=== PATIENT | female | born 1975 | race Two or more races ===

== ENCOUNTER 2017-03-09 21:04 | Inpatient (IN) | payer MEDICAID, OTHER ==
[~2017-03-09] VITALS: Ht 157.5 cm; Wt 59.4 kg
[2017-03-09] MEDS: Albuterol ud Inhalation HHN SCH ×3 (10:00→23:50)
[~2017-03-09 21:04] MED LIST: OMEPRAZOLE20 M2 ORAL
[2017-03-09] MEDS ORDERED: Famotidine 20 MG/ 2ML VIAL IVP ONE (21:15)
[2017-03-09] MEDS ORDERED: Morphine Sulfate 4mg/ml Inj IVP ONE (21:15)
[2017-03-09 21:17] VITALS: BP 105/74
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
[2017-03-09 21:45] LABS: MEAN CORPUSCULAR HEMOGLOBIN 39.8 PG (27.0-31.0); MEAN CORPUSCULAR VOLUME 114 FL (80-99); MEAN PLATELET VOLUME 4.8 FL (6.5-10.1); PLATELET COUNT 375 K/UL (150-450); RED BLOOD COUNT 3.14 M/UL (4.20-5.40); RED CELL DISTRIBUTION WIDTH 13.7 % (11.6-14.8)
[2017-03-09 21:55] LABS: PROTHROMBIN TIME 10.6 SEC (9.30-11.50)
[2017-03-09 22:21] LABS: ALANINE AMINOTRANSFERASE 8 U/L (3-33); ALBUMIN/GLOBULIN RATIO 1.5 (1.0-2.7); ANION GAP 13 (5-15); ASPARTATE AMINO TRANSFERASE 22 U/L (5-40); CARBON DIOXIDE 25 mEQ/L (20-30); CHLORIDE 107 mEQ/L (98-107); CREATININE 0.7 mg/dL (0.5-0.9); GLOMERULAR FILTRATION RATE > 60 mL/min (>60); HEMOLYSIS 5; LIPASE 60 U/L (< 60); POTASSIUM 3.9 mEQ/L (3.4-4.9); SODIUM 145 mEQ/L (135-145); TOTAL PROTEIN 7.5 g/dL (6.6-8.7)
[2017-03-09 22:25] LABS: BASOPHILS % (MANUAL) 1 % (0-2); EOSINOPHILS % (MANUAL) 2 % (0-3); LYMPHOCYTES % (MANUAL) 53 % (20-45); NEUTROPHILS % (MANUAL) 39 % (45-75); TOTAL CELLS COUNTED 100
[2017-03-09 22:28] LABS: ANISOCYTOSIS 1+; BAND NEUTROPHILS % (MANUAL) 0 % (0-8); MACROCYTES 2+; PLATELET ESTIMATE ADEQUATE; PLATELET MORPHOLOGY NORMAL
[2017-03-09] MEDS ORDERED: HYDROmorphone 1mg/ml Carpuject IVP ONE (22:45)
[2017-03-09 22:47] LABS: ALCOHOL 407 mg/dL
[2017-03-09] MEDS ORDERED: Ipratropium 0.02% Inh Soln 2.5ml UD HHN ONE (23:15)
[2017-03-09 23:29] VITALS: BP 134/110
[2017-03-10] VITALS (8 sets, daily range): BP systolic 114–160; BP diastolic 69–94
[2017-03-10] MEDS ORDERED: Mylanta II UD 30ml ORAL ONE (00:45)
[2017-03-10] MEDS ORDERED: Lidocaine 2% Visc 15ml soln ORAL ONE (00:45)
[2017-03-10] MEDS ORDERED: Hydromorphone 0.5mg/0.5ml inj IVP ONE (00:45)
[2017-03-10 01:50] LABS: APPEARANCE,URINE CLEAR; KETONES,URINE NEGATIVE (NEGATIVE); LEUKOCYTE ESTERASE ,URINE 1+ (NEGATIVE); NITRITE,URINE NEGATIVE (NEGATIVE); PH,URINE 5 (4.5-8.0); PROTEIN,URINE NEGATIVE (NEGATIVE); UROBILINOGEN,URINE NORMAL MG/DL (0.0-1.0)
[2017-03-10 02:10] LABS: RBC,URINE 0-2 /HPF (0 - 2)
[2017-03-10 02:11] LABS: BACTERIA,URINE MODERATE /HPF; SQUAMOUS EPITHELIAL CELL,UR MODERATE /LPF (NONE/OCC)
[2017-03-10] MEDS ORDERED: cefTRIAXone 1 GM in NS 55 ML IVPB ONE (06:45)
--- NOTE | 2017-03-10 12:45 | Consultation ---
DATE OF CONSULTATION: 03/10/2017 GASTROENTEROLOGY CONSULTATION REPORT CHIEF COMPLAINT: I was asked to see this patient by Dr. Javon Crisostomo for evaluation of abdominal issues. HISTORY OF PRESENT ILLNESS: The patient is a 41-year-old woman, who was recently discharged from another hospital who comes in here for abdominal issues. The patient was recently admitted to [facility] for approximately six days. She apparently was diagnosed with alcoholic pancreatitis and was just kept on bowel rest and subsequently discharged once she was tolerating oral diet. The patient does drink extensively and she points to approximately a bottle of vodka measuring about a fifth of vodka daily. She has been drinking like this for about 20 years. The patient apparently was discharged home from another hospital and restarted drinking as soon as she was discharged. She came in here high blood alcohol level. She has been having some nausea and vomiting for the past few days, but vomiting was just food material and was no hematemesis or coffee-ground emesis. Also her stools are brown and normal. PAST MEDICAL HISTORY: Otherwise unremarkable. FAMILY HISTORY: Noncontributory. SOCIAL HISTORY: The patient drinks extensively as explained above. She also smoke cigarettes and uses marijuana. She is single, but she has three children. MEDICATIONS: As outpatient none. REVIEW OF SYSTEMS: Otherwise negative. PHYSICAL EXAMINATION: GENERAL: The patient is a well-developed, well-nourished, woman seen in her room with the nurse at bedside. HEENT: Normocephalic and atraumatic. Sclerae anicteric. Oropharynx clear. NECK: Supple. CHEST: Clear to auscultation. CARDIOVASCULAR: Reveals a regular rate. ABDOMEN: Soft with some mild epigastric abdominal discomfort without guarding or rebound. EXTREMITIES: Revealed no edema. LABORATORY DATA: Noted. ASSESSMENT: This patient presents with an extensive alcohol use and recent history of alcoholic pancreatitis now with recurrent nausea and vomiting as she promptly resumed alcohol consumption after discharge from recent attack of pancreatitis. The patient will have to be placed on a bowel rest with IV fluids and proton-pump inhibitors. Should her symptoms resolve and then no further workup will be necessary. However, should she has persistent problems then further evaluation with endoscopy may be indicated. In the meantime, the importance of alcohol cessation was strongly emphasized to the patient. The patient became tearful and clearly understood the indications of her drinking behavior. RECOMMENDATIONS: 1. IV fluids. 2. Proton-pump inhibitor and bowel rest. 3. Monitor symptoms. 4. Discontinue alcohol. 5. Further recommendations to follow. Thank you for asking me to participate in the care of this patient. Jose Vo M.D. DR: GOPI JOB#: [id number] CC: ROSELIA
--- NOTE | 2017-03-10 13:53 | Infectious Diseases Prog Note ---
Assessment/Plan Problems: (1) UTI (urinary tract infection) Assessment & Plan: will send urine culture and start ceftriaxon (2) AA (alcohol abuse) Assessment & Plan: recommend counseling and rehabilitation (3) Abdominal pain Assessment & Plan: rule out PUD VS gastritis , may need EGD , GI is following (4) Nausea & vomiting Assessment & Plan: continue supportive care , and nausea medicine Subjective Allergies: Coded Allergies: No Known Allergies (Unverified , 12/04/15) Objective Vital Signs Last 24 Hour Vital Signs Date Time Temp Pulse Resp B/P Pulse Ox O2 Delivery O2 Flow Rate FiO2 03/10/17 12:33 99.5 77 18 139/91 97 Room Air 03/10/17 09:07 98.4 86 18 128/80 94 Room Air 03/10/17 08:07 98.9 88 15 114/69 100 Room Air 2.0 03/10/17 08:06 98.9 88 15 114/69 100 Room Air 03/10/17 06:00 97.6 85 14 117/71 100 Room Air 2.0 03/10/17 03:30 97.9 100 22 160/84 100 Room Air 2.0 03/10/17 02:01 97.9 03/10/17 01:15 98.4 104 24 132/90 100 Nasal Cannula 2.0 03/09/17 23:35 89 20 100 Nasal Cannula 2.0 03/09/17 23:35 90 20 100 Room Air 03/09/17 23:29 98.2 87 16 134/110 98 Nasal Cannula 2.0 03/09/17 23:15 84 18 Room Air 03/09/17 23:15 84 18 97 Room Air 03/09/17 22:01 98.1 03/09/17 22:01 98.1 03/09/17 21:17 98.1 87 16 105/74 97 Room Air 03/09/17 21:05 98.1 87 16 105/74 97 Room Air Height (Feet): 5 Height (Inches): 2.00 Weight (Pounds): 120 Laboratory Tests Test 03/09/17 21:20 03/10/17 01:15 White Blood Count 6.0 K/UL (4.8-10.8) Red Blood Count 3.14 M/UL (4.20-5.40) L Hemoglobin 12.5 G/DL (12.0-16.0) Hematocrit 35.7 % (37.0-47.0) L Mean Corpuscular Volume 114 FL (80-99) H Mean Corpuscular Hemoglobin 39.8 PG (27.0-31.0) H Mean Corpuscular Hemoglobin Concent 35.0 G/DL (32.0-36.0) Red Cell Distribution Width 13.7 % (11.6-14.8) Platelet Count 375 K/UL (150-450) Mean Platelet Volume 4.8 FL (6.5-10.1) L Neutrophils (%) (Auto) % (45.0-75.0) Lymphocytes (%) (Auto) % (20.0-45.0) Monocytes (%) (Auto) % (1.0-10.0) Eosinophils (%) (Auto) % (0.0-3.0) Basophils (%) (Auto) % (0.0-2.0) Differential Total Cells Counted 100 Neutrophils % (Manual) 39 % (45-75) L Lymphocytes % (Manual) 53 % (20-45) H Monocytes % (Manual) 5 % (1-10) Eosinophils % (Manual) 2 % (0-3) Basophils % (Manual) 1 % (0-2) Band Neutrophils 0 % (0-8) Platelet Estimate Adequate Platelet Morphology Normal Anisocytosis 1+ Macrocytosis 2+ Prothrombin Time 10.6 SEC (9.30-11.50) Prothromb Time International Ratio 1.0 (0.9-1.1) Activated Partial Thromboplast Time 32 SEC (23-33) Sodium Level 145 mEQ/L (135-145) Potassium Level 3.9 mEQ/L (3.4-4.9) Chloride Level 107 mEQ/L (98-107) Carbon Dioxide Level 25 mEQ/L (20-30) Anion Gap 13 (5-15) Blood Urea Nitrogen 10 mg/dL (7-23) Creatinine 0.7 mg/dL (0.5-0.9) Estimat Glomerular Filtration Rate > 60 mL/min (>60) Glucose Level 97 mg/dL (74-106) Calcium Level 9.0 mg/dL (8.6-10.2) Total Bilirubin < 0.2 mg/dL (0.0-1.2) Aspartate Amino Transf (AST/SGOT) 22 U/L (5-40) Alanine Aminotransferase (ALT/SGPT) 8 U/L (3-33) Alkaline Phosphatase 91 U/L (35-104) Total Protein 7.5 g/dL (6.6-8.7) Albumin 4.6 g/dL (3.5-5.2) Globulin 2.9 g/dL Albumin/Globulin Ratio 1.5 (1.0-2.7) Lipase 60 U/L (< 60) Human Chorionic Gonadotropin, Quant < 1 mIU/mL Serum Alcohol 407 mg/dL Urine Color Pale yellow Urine Appearance Clear Urine pH 5 (4.5-8.0) Urine Specific [place] 1.015 (1.005-1.035) Urine Protein Negative (NEGATIVE) Urine Glucose (UA) Negative (NEGATIVE) Urine Ketones Negative (NEGATIVE) Urine Occult Blood Negative (NEGATIVE) Urine Nitrite Negative (NEGATIVE) Urine Bilirubin Negative (NEGATIVE) Urine Urobilinogen Normal MG/DL (0.0-1.0) Urine Leukocyte Esterase 1+ (NEGATIVE) H Urine RBC 0-2 /HPF (0 - 2) Urine WBC 5-10 /HPF (0 - 2) H Urine Squamous Epithelial Cells Moderate /LPF (NONE/OCC) H Urine Bacteria Moderate /HPF (NONE) H Current Medications Medications (Trade) Dose Ordered Sig/Henrry Route PRN Reason Start Time Stop Time Status Last Admin Dose Admin Acetaminophen (Tylenol) 650 mg Q4H PRN ORAL PAIN/TEMP >100.4 03/10/17 08:00 04/09/17 07:59 Ondansetron HCl (Zofran) 4 mg Q6HR PRN IVP Nausea & Vomiting 03/10/17 08:30 04/09/17 08:29 Pantoprazole 40 mg 40 mg ACBREAKFAST ORAL 03/10/17 09:00 04/09/17 08:59 03/10/17 10:45 Sodium Chloride (0.45% NS 1000ml) 1,000 ml @ 75 mls/hr [id number] IV 03/10/17 13:00 04/09/17 12:59 03/10/17 13:20 Markos Davis M.D. Mar 10, 2017 13:53
[2017-03-10] MEDS: HYDROmorphone 1mg/ml Carpuject IVP PRN ×2 (15:59→20:42)
[2017-03-10] MEDS: cefTRIAXone 1 GM in D5W 55 ML IVPB SCH (16:50)
--- NOTE | 2017-03-10 20:30 | Consultation ---
DATE OF CONSULTATION: INFECTIOUS DISEASE CONSULTATION REQUESTING PHYSICIAN: Javon Crisostomo M.D. REASON FOR CONSULTATION: Urine tract infection. HISTORY OF PRESENT ILLNESS: The patient is a 41-year-old female with history of alcohol abuse, drug abuse and smoker presented to [facility] for sudden onset of abdominal pain. The patient has been drinking alcohol and she was admitted recently at [facility] and was treated for acute pancreatitis and discharged on 02/26/2017. The patient also had induced on 03/06/2017. Her pain started last night. It was severe. She vomited the blood and she had black tarry stools. The patient was three months and she had a termination of on 03/06/2017. No discharge or dysuria. No hematuria. Denied any fever or chills. She had mild productive cough. The patient was admitted to the hospital for further evaluation. Urinalysis showed evidence of infection, so I was consulted by the primary provider for antibiotics treatment and further management. PAST MEDICAL HISTORY: Significant for alcohol abuse, , hypertension and pancreatitis. PAST SURGICAL HISTORY: She had on 03/06/2017. MEDICATIONS: She received ceftriaxone in the emergency room. For the rest of her medications, please refer to [facility]. ALLERGIES: No known drug allergy. SOCIAL HISTORY: The patient lives with parents. Drinks alcohol, use drugs, marijuana sometimes and smokes tobacco. FAMILY HISTORY: Not contributory. REVIEW OF SYSTEMS: Fourteen points of system reviewed were all negative apart from the one I mentioned above in my History and Physical. PHYSICAL EXAMINATION: GENERAL: The patient is a middle-aged female, lying in bed, complaining of stomach discomfort, awake, alert, no apparent distress. VITAL SIGNS: Temperature 99.5 degrees, pulse 77, respiration 18, blood pressure 139/91, and saturation 97% on room air. HEENT: Normocephalic and atraumatic. Pupils reactive to light. Moist oral mucosa. No exudate. NECK: Supple. No lymphadenopathy. CARDIOVASCULAR: Regular rate and rhythm. No murmur. LUNGS: Clear bilaterally. No wheezing or rhonchi. Normal breathing efforts. ABDOMEN: Soft. Tender in the epigastrium. No rebound. No organomegaly. No ascites. EXTREMITIES: No edema or cyanosis. SKIN: No rash. No hives. LABORATORY AND DIAGNOSTIC DATA: Labs showed white count of 6, hemoglobin of 12.5, and platelet count 375,000. BUN of 10 and creatinine of 0.7. AST of 22 and ALT of 8. Lipase of 60. Urinalysis showed WBC 5-10, moderate amount of bacteria and +1 leukocyte esterase. Images, none done so far. ASSESSMENT AND RECOMMENDATION: 1. Urinary tract infection. We will send urine culture and start ceftriaxone. 2. Alcohol abuse. Recommend counseling and rehabilitation. 3. Abdominal pain, rule out peptic ulcer disease versus gastritis, may need esophagogastroduodenoscopy and further imaging. Gastrointestinal is following. 4. Nausea and vomiting. Continue supportive care and nausea medicine. Thank you. Markos Davis M.D. DR: VELIA JOB#: [id number] CC:
--- NOTE | 2017-03-10 22:45 | History and Physical Report ---
DATE OF ADMISSION: 03/10/2017 HISTORY OF PRESENT ILLNESS: The patient came in because of abdominal pain. The patient was also admitted for nausea and vomiting. The patient was basically complaining of abdominal pain and vomiting due to alcohol abuse, was also admitted for possible UTI and possible GI bleed and to rule out DT. Also at this point, does not have any manifestation, sign or symptoms of DT. The patient's abdominal pain started couple of days ago and vomited x1. No hematemesis noted. No bleeding. No constipation. No shortness of breath. No edema. PAST MEDICAL HISTORY: GERD, history of pancreatitis, and history of alcohol abuse. PAST SURGICAL HISTORY: None. MEDICATIONS: Omeprazole. ALLERGIES: No known allergies. SOCIAL HISTORY: The patient smokes, has history of drug and alcohol abuse. FAMILY HISTORY: Noncontributory. REVIEW OF SYSTEMS: HEENT: Denies headaches. Respiratory: Denies shortness of breath. Denies cough. Cardiovascular: Denies chest pain or orthopnea. Gastrointestinal: Reports abdominal pain associated with one time vomiting. No hematemesis. No constipation. No rectal bleeding. Extremities: Denies pain. Central Nervous System: No change in vision or speech pattern. PHYSICAL EXAMINATION: VITAL SIGNS: Temperature 97.9 degrees, pulse is 100, and blood pressure was 160/85. HEENT: PERRLA. NECK: Supple. No lymphadenopathy. CHEST: Clear to auscultation. CARDIOVASCULAR: Regular rate and rhythm. No murmur or extra sounds. GASTROINTESTINAL: Epigastric tenderness, very mild. No rebound. No organomegaly. Positive bowel sounds. EXTREMITIES: No edema. Moves all four extremities. NEUROLOGIC: Sensation is intact to light touch. Reflexes equal on both sides. LABORATORY DATA: WBC of 6, hemoglobin 12.5, and platelets 375,000. Sodium 145, potassium 3.9, BUN of 10, creatinine of 0.7, and glucose of 97. Lipase of 60. ASSESSMENT AND PLAN: Abdominal pain and vomiting and history of drug and alcohol abuse. I have consulted Dr. Vo, Dr. Dempsey, Dr. Hernandez, Dr. Davis, and Dr. Nunes for pain control as well as rule out delirium tremens as well as for rule out any psychiatric, possible depression as well as for the possible treatment of urinary tract infection and possible gastrointestinal bleed. Ali Liliam Crisostomo DR: ANDREA JOB#: [id number] CC:
[2017-03-11] VITALS: BP 155/82
[2017-03-11] MEDS: HYDROmorphone 1mg/ml Carpuject IVP PRN ×6 (00:45→22:03)
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
[2017-03-11 04:00] VITALS: BP 159/91
[2017-03-11 08:36] VITALS: BP 160/95
--- NOTE | 2017-03-11 08:48 | Consultation ---
History of Present Illness General Date patient seen: Mar 11, 2017 Chief Complaint: Abdominal Pain Present Illness Allergies: Coded Allergies: No Known Allergies (Unverified , 12/04/15) Medication History Scheduled Omeprazole (Omeprazole), 20 MG ORAL DAILY Patient History Healthcare decision maker Resuscitation status Advanced Directive on File Physical Exam Last 24 Hour Vital Signs Date Time Temp Pulse Resp B/P Pulse Ox O2 Delivery O2 Flow Rate FiO2 03/11/17 08:36 98.2 74 18 160/95 100 Room Air 03/11/17 04:00 98.2 62 20 159/91 94 Room Air 03/11/17 00:00 97.2 68 20 155/82 95 Nasal Cannula 2.0 03/10/17 21:00 97.4 69 20 151/94 100 Room Air 03/10/17 16:47 98.2 81 18 146/92 98 Room Air 03/10/17 12:33 99.5 77 18 139/91 97 Room Air 03/10/17 09:07 98.4 86 18 128/80 94 Room Air Intake and Output 03/10/17 03/11/17 19:00 07:00 Intake Total 710 ml 975 ml Balance 710 ml 975 ml IV Total 710 ml 975 ml # Voids 3 Height (Feet): 5 Height (Inches): 2.00 Weight (Pounds): 120 Medications Current Medications Medications (Trade) Dose Ordered Sig/Henrry Route PRN Reason Start Time Stop Time Status Last Admin Dose Admin Acetaminophen (Tylenol) 650 mg Q4H PRN ORAL PAIN/TEMP >100.4 03/10/17 08:00 04/09/17 07:59 Ceftriaxone Sodium/Dextrose (Rocephin/D5W) 55 ml @ 110 mls/hr Q24H IVPB 03/10/17 16:00 03/17/17 15:59 03/10/17 16:50 Diazepam (Valium) 10 mg Q4H PRN ORAL anxiety/alcohol withdrawal 03/10/17 19:30 03/17/17 19:29 Fluoxetine HCl (PROzac) 20 mg DAILY ORAL 03/11/17 09:00 04/10/17 08:59 03/11/17 08:28 Hydromorphone HCl (Dilaudid) 1 mg Q4H PRN IVP For Pain 4-10 03/10/17 15:30 03/17/17 15:29 03/11/17 04:59 Mirtazapine (Remeron) 7.5 mg BEDTIME ORAL 03/10/17 21:00 04/09/17 20:59 03/10/17 20:43 Ondansetron HCl (Zofran) 4 mg Q6HR PRN IVP Nausea & Vomiting 03/10/17 08:30 04/09/17 08:29 Pantoprazole 40 mg 40 mg ACBREAKFAST ORAL 03/10/17 09:00 04/09/17 08:59 03/11/17 06:09 Sodium Chloride 1,000 ml @ 75 mls/hr [id number] IV 03/10/17 13:00 04/09/17 12:59 03/11/17 00:45 Assessment/Plan Assessment/Plan (1) Intractable abdominal pain (2) Alcohol abuse (3) Pancreatitis seen dictated KENNY BOWER Mar 11, 2017 08:48
[2017-03-11 12:01] VITALS: BP 144/87
--- NOTE | 2017-03-11 14:35 | Neurology Progress Note ---
Objective Physical Exam Last Vital Signs Date Time Temp Pulse Resp B/P Pulse Ox O2 Delivery O2 Flow Rate FiO2 03/11/17 12:01 97.7 70 18 144/87 100 Room Air 03/11/17 00:00 2.0 03/10/17 08:07 28 Impression/Recommendations Problems: (1) r/o sensory polyneuropathy (2) ETOH abuse Status: unchanged Recommendations #[id number] ROSENDA OBREGON Mar 11, 2017 14:35
[2017-03-11] MEDS: Thiamine 100mg tab ORAL SCH (15:05)
[2017-03-11] MEDS: cefTRIAXone 1 GM in D5W 55 ML IVPB SCH (15:31)
[2017-03-11] MEDS ORDERED: Tubing IV Secondary IV ONE (15:51)
[2017-03-11] MEDS ORDERED: 1/2 NS 1000ml IV ONE ×2 (15:51→16:53)
[2017-03-11 16:47] VITALS: BP 149/90
--- NOTE | 2017-03-11 16:52 | Infectious Diseases Prog Note ---
Assessment/Plan Problems: (1) UTI (urinary tract infection) Assessment & Plan: await urine culture and continue ceftriaxon (2) AA (alcohol abuse) Assessment & Plan: recommend counseling and rehabilitation (3) Abdominal pain Assessment & Plan: rule out PUD VS gastritis , may need EGD , GI is following (4) Nausea & vomiting Assessment & Plan: continue supportive care , and nausea medicine Subjective Constitutional: Reports: no symptoms HEENT: Reports: no symptoms Respiratory: Reports: no symptoms Breasts: Reports: no symptoms Cardiovascular: Reports: no symptoms Gastrointestinal/Abdominal: Reports: bloating, nausea, other - pain Genitourinary: Reports: no symptoms Neurologic: Reports: no symptoms Psychiatric: Reports: no symptoms Skin: Reports: no symptoms Endocrine: Reports: no symptoms Allergies: Coded Allergies: No Known Allergies (Unverified , 12/04/15) Objective Vital Signs Last 24 Hour Vital Signs Date Time Temp Pulse Resp B/P Pulse Ox O2 Delivery O2 Flow Rate FiO2 03/11/17 16:47 97.9 65 18 149/90 95 Room Air 03/11/17 12:01 97.7 70 18 144/87 100 Room Air 03/11/17 08:36 98.2 74 18 160/95 100 Room Air 03/11/17 04:00 98.2 62 20 159/91 94 Room Air 03/11/17 00:00 97.2 68 20 155/82 95 Nasal Cannula 2.0 03/10/17 21:00 97.4 69 20 151/94 100 Room Air Height (Feet): 5 Height (Inches): 2.00 Weight (Pounds): 120 General Appearance: WD/WN, no acute distress HEENT: normocephalic, atraumatic, anicteric, mucous membranes moist, PERRL Respiratory/Chest: chest wall non-tender, lungs clear, normal breath sounds, no respiratory distress, no accessory muscle use Cardiovascular: normal peripheral pulses, normal rate, regular rhythm, no gallop/murmur, no JVD Abdomen: normal bowel sounds, soft, non tender, no organomegaly, no mass, no scars, absent bowel sounds, distended, tender Extremities: no cyanosis, no clubbing Skin: no rash, no lesions Microbiology Date/Time Source Procedure Growth Status 03/10/17 01:15 Urine,Clean Catch Urine Culture - Preliminary NO GROWTH AFTER 24 HOURS Resulted Current Medications Medications (Trade) Dose Ordered Sig/Henrry Route PRN Reason Start Time Stop Time Status Last Admin Dose Admin Acetaminophen (Tylenol) 650 mg Q4H PRN ORAL PAIN/TEMP >100.4 03/10/17 08:00 04/09/17 07:59 Ceftriaxone Sodium/Dextrose (Rocephin/D5W) 55 ml @ 110 mls/hr Q24H IVPB 03/10/17 16:00 03/17/17 15:59 03/11/17 15:31 Diazepam (Valium) 10 mg Q4H PRN ORAL anxiety/alcohol withdrawal 03/10/17 19:30 03/17/17 19:29 Fluoxetine HCl (PROzac) 20 mg DAILY ORAL 03/11/17 09:00 04/10/17 08:59 03/11/17 08:28 Gabapentin (Neurontin) 100 mg THREE TIMES A DAY ORAL 03/11/17 15:30 04/10/17 15:29 03/11/17 15:05 Hydromorphone HCl (Dilaudid) 1 mg Q4H PRN IVP For Pain 4-10 03/10/17 15:30 03/17/17 15:29 03/11/17 13:09 Mirtazapine (Remeron) 7.5 mg BEDTIME ORAL 03/10/17 21:00 04/09/17 20:59 03/10/17 20:43 Ondansetron HCl (Zofran) 4 mg Q6HR PRN IVP Nausea & Vomiting 03/10/17 08:30 04/09/17 08:29 Pantoprazole 40 mg 40 mg ACBREAKFAST ORAL 03/10/17 09:00 04/09/17 08:59 03/11/17 06:09 Sodium Chloride 1,000 ml @ 75 mls/hr [id number] IV 03/10/17 13:00 04/09/17 12:59 03/11/17 15:10 Thiamine HCl (Vitamin B1) 100 mg DAILY ORAL 03/11/17 15:30 04/10/17 15:29 03/11/17 15:05 Markos Davis M.D. Mar 11, 2017 16:52
--- NOTE | 2017-03-11 18:01 | General Progress Note ---
Assessment/Plan Assessment/Plan Assessment - EtOH abuse - epigastric pain, presumed EtOH gastritis - Macrocytosis Recommendations - po diet - EGD in am - possible CT scan if pain persists Subjective Allergies: Coded Allergies: No Known Allergies (Unverified , 12/04/15) Subjective Hungry wants to eat still with epigastric pain no vomiting Objective Last 24 Hour Vital Signs Date Time Temp Pulse Resp B/P Pulse Ox O2 Delivery O2 Flow Rate FiO2 03/11/17 16:47 97.9 65 18 149/90 95 Room Air 03/11/17 12:01 97.7 70 18 144/87 100 Room Air 03/11/17 08:36 98.2 74 18 160/95 100 Room Air 03/11/17 04:00 98.2 62 20 159/91 94 Room Air 03/11/17 00:00 97.2 68 20 155/82 95 Nasal Cannula 2.0 03/10/17 21:00 97.4 69 20 151/94 100 Room Air Intake and Output 03/10/17 03/11/17 19:00 07:00 Intake Total 710 ml 975 ml Balance 710 ml 975 ml IV Total 710 ml 975 ml # Voids 3 Height (Feet): 5 Height (Inches): 2.00 Weight (Pounds): 120 Objective WDWn NCAT supple CTA RRR Soft ND, (+) TTP epigastric, less TTP when distracted no edema non focal CLIFF HALL Mar 11, 2017 18:01
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
[2017-03-11 21:00] VITALS: BP 158/83
--- NOTE | 2017-03-11 22:23 | General Progress Note ---
Assessment/Plan Problem List: (1) Gastritis ICD Codes: K29.70 - Gastritis, unspecified, without bleeding SNOMED: 6718546 (2) Alcohol abuse ICD Codes: F10.10 - Alcohol abuse, uncomplicated SNOMED: 18989770 (3) Abdominal pain ICD Codes: R10.9 - Unspecified abdominal pain SNOMED: 40798990 (4) Nausea & vomiting ICD Codes: R11.2 - Nausea with vomiting, unspecified SNOMED: 64540397 Status: progressing Assessment/Plan abdominal pain is improving afebrile vitals stable no vomit no pancreatitis etoh abuse Subjective ROS Limited/Unobtainable: Yes Constitutional: Reports: no symptoms Allergies: Coded Allergies: No Known Allergies (Unverified , 12/04/15) Objective Last 24 Hour Vital Signs Date Time Temp Pulse Resp B/P Pulse Ox O2 Delivery O2 Flow Rate FiO2 03/11/17 16:47 97.9 65 18 149/90 95 Room Air 03/11/17 12:01 97.7 70 18 144/87 100 Room Air 03/11/17 08:36 98.2 74 18 160/95 100 Room Air 03/11/17 04:00 98.2 62 20 159/91 94 Room Air 03/11/17 00:00 97.2 68 20 155/82 95 Nasal Cannula 2.0 Intake and Output 03/10/17 03/11/17 19:00 07:00 Intake Total 710 ml 975 ml Balance 710 ml 975 ml IV Total 710 ml 975 ml # Voids 3 Height (Feet): 5 Height (Inches): 2.00 Weight (Pounds): 120 Abdomen: tender Javon Crisostomo MD Mar 11, 2017 22:23
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
--- NOTE | 2017-03-11 22:46 | Consultation ---
DATE OF CONSULTATION: 03/11/2017 PAIN MANAGEMENT CONSULTATION CONSULTING PHYSICIAN: Jessica Nunes M.D. PHYSICIAN PHOTO OPTICS TECHNICIAN: Stanislaw Ybarra REFERRING PHYSICIAN: Javon Crisostomo M.D. CHIEF COMPLAINT: Abdominal pain. HISTORY OF PRESENT ILLNESS: This is a 41-year-old female, who is being seen on the medical/surgical floor of [facility] for initial comprehensive pain management consultation. The patient states that she has been having abdominal pain since Wednesday night. It is acute and constant, rating it at 9/10 at its worst, describing as sharp pain, increasing with eating, and decreasing with medications. The patient reports that she has been using lot of alcohol and is alcoholic and was found apparently to have alcoholic pancreatitis, now admitted with pancreatitis as well, seen by convertible power shovel operator. Due to the pain, we were consulted so that the patient would have adequate pain control while here in the hospital. PAST MEDICAL HISTORY: Alcoholic pancreatitis and GERD. PAST SURGICAL HISTORY: Denies. ALLERGIES: No known drug allergies. MEDICATIONS: Omeprazole. SOCIAL HISTORY: She is a smoker, tobacco and marijuana. History of drug and alcohol abuse. REVIEW OF SYSTEMS: Denies rash, fever, chills, sweating, dizziness, drowsiness, blurred vision, sore throat, or change in weight. No shortness of breath or chest pain. No nausea, vomiting, diarrhea, or blood in the stool or urine. No bowel or bladder incontinence. No dysuria. She is complaining of severe abdominal pain. PHYSICAL EXAMINATION: GENERAL: Alert, awake, and oriented x3. VITAL SIGNS: Blood pressure is 160/95, heart rate 75, oxygen saturation 100%, respiratory rate 18, and temperature 98.2 degrees Fahrenheit. Height is 5 feet and 2 inches HEENT: PERRLA. NECK: Range of motion is full in all directions. No tenderness to paracervical muscles. No adenopathy. LUNGS: Clear. HEART: Regular. ABDOMEN: Tenderness to palpation. BACK: Range of motion is decreased on flexion and extension with tenderness to paraspinal muscles. No tenderness to trapezius or rhomboid muscles. EXTREMITIES: Upper extremity range of motion is full in all directions. Motor is intact. No cyanosis. No clubbing. No edema. Sensory is intact. Reflexes are unobtainable. No adenopathy. Lower extremity range of motion is decreased due to the patient's medical condition. Motor is intact. No cyanosis. No clubbing. No edema. Sensory is intact. Reflexes are unobtainable. No adenopathy. ASSESSMENT AND PLAN: This is a 41-year-old female with intractable abdominal pain, alcohol abuse, and pancreatitis. The patient was started on Dilaudid 1 mg IV every four hours as needed for severe pain. The patient was discussed with Dr. Nunes and Dr. Nunes concurred. We will follow the patient. Thank you very much for the courtesy of this consultation. Jessica Nunes M.D. BLAYNE Ybarra DR: Pablo JOB#: [id number] CC: ROSELIA
[2017-03-12] VITALS (10 sets, daily range): BP systolic 140–163; BP diastolic 86–110
[2017-03-12] MEDS: HYDROmorphone 1mg/ml Carpuject IVP PRN ×5 (02:21→21:33)
--- NOTE | 2017-03-12 06:20 | Anethesia Preoperative Eval ---
Anesthesia Pre-op PMH/ROS General Date of Evaluation: Mar 12, 2017 Time of Evaluation: 06:20 Anesthesiologist: terrence ASA Score: ASA 3 Mallampati Score Class I : Soft palate, uvula, fauces, pillars visible Class II: Soft palate, uvula, fauces visible Class III: Soft palate, base of uvula visible Class IV: Only hard plate visible Mallampati Classification: Class II Surgeon: maximiliano Diagnosis: abdominal pain Surgical Procedure: egd w/ bx Anesthesia History: none Social History: current smoker Family History: no anesthesia problems Allergies: Coded Allergies: No Known Allergies (Unverified , 12/04/15) Medications: see eMAR Past Medical History Cardiovascular: Reports: HTN Pulmonary: Reports: other - broncopam Gastrointestinal/Genitourinary: Reports: other - lmp 03/06/2017/ Anesthesia Pre-op Phys. Exam Physician Exam Last Vital Signs Date Time Temp Pulse Resp B/P Pulse Ox O2 Delivery O2 Flow Rate FiO2 03/11/17 21:00 97.3 75 18 158/83 96 Room Air 03/11/17 00:00 2.0 03/10/17 08:07 28 Constitutional: NAD Neurologic: CN 2-12 intact Cardiovascular: RRR Respiratory: CTA Gastrointestinal: S/NT/ND Airway Exam Mallampati Score: Class II MO: full Neck: supple TMD: 2fb ROM: full Teeth: missing, broken Anesthesia Pre-op A/P Labs Labs Test 03/09/17 21:20 03/10/17 01:15 White Blood Count 6.0 K/UL (4.8-10.8) Red Blood Count 3.14 M/UL (4.20-5.40) Hemoglobin 12.5 G/DL (12.0-16.0) Hematocrit 35.7 % (37.0-47.0) Mean Corpuscular Volume 114 FL (80-99) Mean Corpuscular Hemoglobin 39.8 PG (27.0-31.0) Mean Corpuscular Hemoglobin Concent 35.0 G/DL (32.0-36.0) Red Cell Distribution Width 13.7 % (11.6-14.8) Platelet Count 375 K/UL (150-450) Mean Platelet Volume 4.8 FL (6.5-10.1) Neutrophils (%) (Auto) % (45.0-75.0) Lymphocytes (%) (Auto) % (20.0-45.0) Monocytes (%) (Auto) % (1.0-10.0) Eosinophils (%) (Auto) % (0.0-3.0) Basophils (%) (Auto) % (0.0-2.0) Differential Total Cells Counted 100 Neutrophils % (Manual) 39 % (45-75) Lymphocytes % (Manual) 53 % (20-45) Monocytes % (Manual) 5 % (1-10) Eosinophils % (Manual) 2 % (0-3) Basophils % (Manual) 1 % (0-2) Band Neutrophils 0 % (0-8) Platelet Estimate Adequate Platelet Morphology Normal Anisocytosis 1+ Macrocytosis 2+ Prothrombin Time 10.6 SEC (9.30-11.50) Prothromb Time International Ratio 1.0 (0.9-1.1) Activated Partial Thromboplast Time 32 SEC (23-33) Sodium Level 145 mEQ/L (135-145) Potassium Level 3.9 mEQ/L (3.4-4.9) Chloride Level 107 mEQ/L (98-107) Carbon Dioxide Level 25 mEQ/L (20-30) Anion Gap 13 (5-15) Blood Urea Nitrogen 10 mg/dL (7-23) Creatinine 0.7 mg/dL (0.5-0.9) Estimat Glomerular Filtration Rate > 60 mL/min (>60) Glucose Level 97 mg/dL (74-106) Calcium Level 9.0 mg/dL (8.6-10.2) Total Bilirubin < 0.2 mg/dL (0.0-1.2) Aspartate Amino Transf (AST/SGOT) 22 U/L (5-40) Alanine Aminotransferase (ALT/SGPT) 8 U/L (3-33) Alkaline Phosphatase 91 U/L (35-104) Total Protein 7.5 g/dL (6.6-8.7) Albumin 4.6 g/dL (3.5-5.2) Globulin 2.9 g/dL Albumin/Globulin Ratio 1.5 (1.0-2.7) Lipase 60 U/L (< 60) Human Chorionic Gonadotropin, Quant < 1 mIU/mL Serum Alcohol 407 mg/dL Urine Color Pale yellow Urine Appearance Clear Urine pH 5 (4.5-8.0) Urine Specific [place] 1.015 (1.005-1.035) Urine Protein Negative (NEGATIVE) Urine Glucose (UA) Negative (NEGATIVE) Urine Ketones Negative (NEGATIVE) Urine Occult Blood Negative (NEGATIVE) Urine Nitrite Negative (NEGATIVE) Urine Bilirubin Negative (NEGATIVE) Urine Urobilinogen Normal MG/DL (0.0-1.0) Urine Leukocyte Esterase 1+ (NEGATIVE) Urine RBC 0-2 /HPF (0 - 2) Urine WBC 5-10 /HPF (0 - 2) Urine Squamous Epithelial Cells Moderate /LPF (NONE/OCC) Urine Bacteria Moderate /HPF (NONE) Serum Test less than 1 Risk Assessment & Plan Assessment: asa3 Plan: mac Status Change Before Surgery: No Pre-Antibiotics Drug: TAE Mendez Mar 12, 2017 06:20
[2017-03-12] MEDS ORDERED: Hydromorphone 0.5mg/0.5ml inj IVP PRN ×2 (07:00)
[2017-03-12] MEDS ORDERED: DiphenhydrAMINE 50mg/ml Inj IVP PRN ×2 (07:00)
[2017-03-12] MEDS ORDERED: Midazolam 2mg/2ml Inj IVP PRN ×2 (07:00)
[2017-03-12] MEDS ORDERED: Atropine Inj 1mg/10ml Syr IV PRN ×2 (07:00)
--- NOTE | 2017-03-12 07:02 | Pre-Procedure Note/Attestation ---
Pre-Procedure Note/Attestation Complete Prior to Procedure Planned Procedure: not applicable Procedure Narrative: egd Indications for Procedure Pre-Operative Diagnosis: abd pain Attestation I attest that I discussed the nature of the procedure; its benefits; risks and complications; and alternatives (and the risks and benefits of such alternatives ), prior to the procedure, with the patient (or the patient's legal sales representative printing supplies). I attest that, if there was a reasonable possibility of needing a blood transfusion, the patient (or the patient's legal sales representative printing supplies) was given the [facility] standardized written summary, pursuant to the [place] Blood Safety Act ([place] Health and Safety Code # 1645, as amended). I attest that I re-evaluated the patient just prior to the surgery and that there has been no change in the patient's H&P, except as documented below: CLIFF HALL Mar 12, 2017 07:02
--- NOTE | 2017-03-12 07:10 | General Progress Note ---
Assessment/Plan Assessment/Plan Assessment - EtOH abuse - epigastric pain, presumed EtOH gastritis - Macrocytosis Recommendations - CT abd / pelvis Subjective Allergies: Coded Allergies: No Known Allergies (Unverified , 12/04/15) Subjective seen in GI lab tolerated po still with pain, but better EGD done this am --> normal Objective Last 24 Hour Vital Signs Date Time Temp Pulse Resp B/P Pulse Ox O2 Delivery O2 Flow Rate FiO2 03/11/17 21:00 97.3 75 18 158/83 96 Room Air 03/11/17 16:47 97.9 65 18 149/90 95 Room Air 03/11/17 12:01 97.7 70 18 144/87 100 Room Air 03/11/17 08:36 98.2 74 18 160/95 100 Room Air Intake and Output 03/11/17 03/12/17 19:00 07:00 Intake Total 880 ml 750 ml Balance 880 ml 750 ml IV Total 880 ml 750 ml # Voids 2 Height (Feet): 5 Height (Inches): 2.00 Weight (Pounds): 131 Objective WDWn NCAT supple CTA RRR Soft ND, Less TTP epigastric no edema non focal CLIFF HALL Mar 12, 2017 07:10
--- NOTE | 2017-03-12 07:11 | Endoscopy Procedure Note ---
Endoscopy Procedure Note Indication for Procedure: pain Procedures Performed: EGD Operative Findings/Diagnosis: normal Specimen: yes Pt Tolerated Procedure Well: Yes Estimated Blood Loss: none Anesthesiologist: Anthony morris Anesthesia: MAC Medication Given: see anesthesia record Implant(s) used?: No 50 yrs or older w/o bx or poly: Not Applicable 10yrs. F/U not recommended: Not Applicable If not recommended, why?: CLIFF HALL Mar 12, 2017 07:11
--- NOTE | 2017-03-12 07:12 | Brief Operative Note ---
Immediate Post Operative Note Operative Note Chief Complaint: pain Pre-op Diagnosis: abd pain Procedure: egd/bx Post-op Diagnosis: nl Post-op Diagnosis: same as pre-op Surgeon: maximiliano Anesthesiologist: garrick morris Anesthesia: MAC Specimen: yes Complications: none Condition: stable Estimated Blood Loss: none Drains: none Implant(s) used?: No CLIFF HALL Mar 12, 2017 07:12
--- NOTE | 2017-03-12 07:27 | Immediate Post-Op Evaluation ---
Immediate Post-Op Evalulation Immediate Post-Op Evalulation Procedure: egd with biopsy Date of Evaluation: Mar 12, 2017 Time of Evaluation: 07:27 IV Fluids: 0.9ns 150ml Blood Products: none Estimated Blood Loss: negligible Blood Pressure Systolic: 154 Blood Pressure Diastolic: 91 Pulse Rate: 61 Respiratory Rate: 18 O2 Sat by Pulse Oximetry: 100 Temperature (Fahrenheit): 98.1 Pain Score (1-10): 0 Nausea: No Vomiting: No Complications none Patient Status: awake, reacts, patent Hydration Status: adequate Drug: TAE Mendez Mar 12, 2017 07:27
--- NOTE | 2017-03-12 07:29 | 48 Hour Post Anesthesia Eval ---
Post Anesthesia Evaluation Procedure: egd with biopsy Date of Evaluation: Mar 12, 2017 Time of Evaluation: 07:29 Blood Pressure Systolic: 155 0: 91 Pulse Rate: 68 Respiratory Rate: 18 Temperature (Fahrenheit): 98.1 O2 Sat by Pulse Oximetry: 100 Airway: patent Nausea: No Vomiting: No Pain Intensity: 6 Cardiopulmonary Status: stable Mental Status/LOC: patient returned to baseline Post-Anesthesia Complications: none Follow-up care needed: N/A TAE CHINO Mar 12, 2017 07:29
[2017-03-12] MEDS ORDERED: Lidocaine 1% MPF 10mg/ml 5ml ONE (08:00)
[2017-03-12] MEDS ORDERED: Propofol 10mg/ml 20ml IV ONE (08:00)
--- NOTE | 2017-03-12 10:35 | General Progress Note ---
Assessment/Plan Assessment/Plan (1) Intractable abdominal pain (2) Alcohol abuse (3) Pancreatitis We continue Dilaudid as needed. D/w Dr. Nunes and he concurred. Subjective Date patient seen: Mar 12, 2017 Time patient seen: 09:00 - am Constitutional: Reports: no symptoms HEENT: Reports: no symptoms Cardiovascular: Reports: no symptoms Respiratory: Reports: no symptoms Gastrointestinal/Abdominal: Reports: abdominal pain Genitourinary: Reports: no symptoms Neurologic/Psychiatric: Reports: no symptoms Endocrine: Reports: no symptoms Hematologic/Lymphatic: Reports: no symptoms Allergies: Coded Allergies: No Known Allergies (Unverified , 12/04/15) Subjective Patient is sitting up in bed reports continues to have pain and tolerable on the Dilaudid rating it a 6/10 at this time. Objective Last 24 Hour Vital Signs Date Time Temp Pulse Resp B/P Pulse Ox O2 Delivery O2 Flow Rate FiO2 03/12/17 08:43 97.4 76 20 163/110 98 Room Air 03/12/17 07:52 98.1 70 13 146/96 100 Room Air 03/12/17 07:30 68 18 152/86 100 Room Air 03/12/17 07:29 68 18 100 03/12/17 07:27 61 18 100 03/12/17 07:20 16 154/91 99 Room Air 03/12/17 07:15 98.1 74 15 149/95 100 Room Air 03/11/17 21:00 97.3 75 18 158/83 96 Room Air 03/11/17 16:47 97.9 65 18 149/90 95 Room Air 03/11/17 12:01 97.7 70 18 144/87 100 Room Air Intake and Output 03/11/17 03/12/17 19:00 07:00 Intake Total 880 ml 750 ml Balance 880 ml 750 ml IV Total 880 ml 750 ml # Voids 2 Height (Feet): 5 Height (Inches): 2.00 Weight (Pounds): 131 General Appearance: no apparent distress, alert EENT: PERRL/EOMI, normal ENT inspection Neck: non-tender, normal alignment Cardiovascular: normal rate, regular rhythm Respiratory/Chest: lungs clear, normal breath sounds Abdomen: tender Extremities: non-tender Edema: no edema noted Arm (L), no edema noted Arm (R), no edema noted Leg (L), no edema noted Leg (R), no edema noted Pedal (L), no edema noted Pedal (R), no edema noted Generalized Neurologic: alert, oriented x 3 Skin: warm/dry KENNY BOWER Mar 12, 2017 10:35
--- NOTE | 2017-03-12 11:55 | Diagnostic Imaging Report ---
Indication: Abdominal pain Technique: Continuous helical transaxial imaging of the abdomen and pelvis was obtained from the lung bases to the pubic symphysis during intravenous contrast administration. Coronal 2-D reformats were also obtained. Study obtained in a Siemens sensation [address] Total Dose length Product (DLP): [address] Dose Index Volume (CTDIvol): 13 mGy Comparison: None Findings: The lung bases are essentially clear. Within the lateral segment of the left lobe of the liver adjacent to the falciform ligament there is a hyperenhancing, globular, or approximately 1.8 x 3.3 cm mass. This is probably an incidental vascular malformation. Suggest nonemergent workup on an outpatient basis with Doppler ultrasound. There is a small cyst in the right kidney. There is a tiny nonobstructive stone in the mid pole the right kidney. There is no hydronephrosis. The gallbladder, spleen and adrenal glands are unremarkable. At the head of the pancreas there is a 5 mm focus of calcification. The CBD does not appear dilated. Adjacent to the CBD and the main pancreatic duct there is a suggestion of small cystic foci measuring 5-6mm. The main pancreatic duct is not dilated. The appendix is seen and appears normal. There is a 3.5 cm right ovarian cyst demonstrated. There is a 2 cm hyperenhancing focus within the anterior uterine body consistent with a fibroid. The bladder is unremarkable. Impression: No acute intra-abdominal findings. Focus of calcification at the head of the pancreas, nonspecific. This is probably on the basis of old pancreatitis. Small cystic foci at the head of the pancreas may be related to chronic pancreatitis i.e. inflammatory pseudocysts or IPMNs. Tiny nonobstructive stone in the right kidney. Right renal cyst Normal appendix. Incidental suspected vascular malformation involving the liver measuring 3.3 x 1.8 cm. 3.5 cm right ovarian cyst. 2 cm uterine fibroid. The CT scanner at [facility] is accredited by the [employer] and the scans are performed using dose optimization techniques as appropriate to a performed exam including Automatic Exposure control.
[2017-03-12] MEDS: Thiamine 100mg tab ORAL SCH (12:45)
--- NOTE | 2017-03-12 15:18 | Infectious Diseases Prog Note ---
Assessment/Plan Problems: (1) UTI (urinary tract infection) Assessment & Plan: urine culture is negative , will stop ceftriaxon (2) AA (alcohol abuse) Assessment & Plan: recommend counseling and rehabilitation (3) Abdominal pain Assessment & Plan: S/P EGD which showed gastritis , CT abdomen showed calcification at the pancreatic head, GI is following (4) Nausea & vomiting Assessment & Plan: resolved, continue supportive care , and nausea medicine Subjective Constitutional: Reports: no symptoms HEENT: Reports: no symptoms Respiratory: Reports: no symptoms Breasts: Reports: no symptoms Cardiovascular: Reports: no symptoms Gastrointestinal/Abdominal: Reports: no symptoms Genitourinary: Reports: no symptoms Neurologic: Reports: no symptoms Psychiatric: Reports: no symptoms Skin: Reports: no symptoms Endocrine: Reports: no symptoms Hematologic: Reports: no symptoms Musculoskeletal: Reports: no symptoms Allergies: Coded Allergies: No Known Allergies (Unverified , 12/04/15) Objective Vital Signs Last 24 Hour Vital Signs Date Time Temp Pulse Resp B/P Pulse Ox O2 Delivery O2 Flow Rate FiO2 03/12/17 14:00 75 158/100 03/12/17 11:54 97.3 67 20 163/98 99 Room Air 03/12/17 11:52 97.4 76 20 163/110 98 Room Air 03/12/17 08:43 97.4 76 20 163/110 98 Room Air 03/12/17 07:52 98.1 70 13 146/96 100 Room Air 03/12/17 07:30 68 18 152/86 100 Room Air 03/12/17 07:29 68 18 100 03/12/17 07:27 61 18 100 03/12/17 07:20 16 154/91 99 Room Air 03/12/17 07:15 98.1 74 15 149/95 100 Room Air 03/11/17 21:00 97.3 75 18 158/83 96 Room Air 03/11/17 16:47 97.9 65 18 149/90 95 Room Air Height (Feet): 5 Height (Inches): 2.00 Weight (Pounds): 131 General Appearance: WD/WN, no acute distress HEENT: normocephalic, atraumatic, anicteric, mucous membranes moist Respiratory/Chest: chest wall non-tender, lungs clear, normal breath sounds, no respiratory distress, no accessory muscle use Cardiovascular: normal peripheral pulses, normal rate, regular rhythm, no gallop/murmur, no JVD Abdomen: normal bowel sounds, soft, non tender, no organomegaly, non distended , no mass, no scars Extremities: no cyanosis, no clubbing Skin: no rash, no lesions Neurologic/Psychiatric: alert, oriented x 3 Lymphatic: no neck adenopathy, no groin adenopathy Microbiology Date/Time Source Procedure Growth Status 03/10/17 01:15 Urine,Clean Catch Urine Culture - Final NO GROWTH AFTER 48 HOURS Complete 03/10/17 16:30 Rectum VRE Culture - Final NO VANCOMYCIN RESISTANT ENTEROCOCCUS ... Complete Current Medications Medications (Trade) Dose Ordered Sig/Henrry Route PRN Reason Start Time Stop Time Status Last Admin Dose Admin Acetaminophen (Tylenol) 650 mg Q4H PRN ORAL PAIN/TEMP >100.4 03/10/17 08:00 04/09/17 07:59 Diazepam (Valium) 10 mg Q4H PRN ORAL anxiety/alcohol withdrawal 03/10/17 19:30 03/17/17 19:29 Fluoxetine HCl (PROzac) 20 mg DAILY ORAL 03/11/17 09:00 04/10/17 08:59 03/12/17 12:45 Gabapentin (Neurontin) 100 mg THREE TIMES A DAY ORAL 03/11/17 15:30 04/10/17 15:29 03/12/17 12:45 Hydromorphone HCl (Dilaudid) 0.5 mg Q15M PRN IVP Severe Pain (Pain Scale 7-10) 03/12/17 07:00 Hydromorphone HCl (Dilaudid) 1 mg Q4H PRN IVP For Pain 4-10 03/10/17 15:30 03/17/17 15:29 03/12/17 12:50 Mirtazapine (Remeron) 7.5 mg BEDTIME ORAL 03/10/17 21:00 04/09/17 20:59 03/11/17 21:42 Ondansetron HCl (Zofran) 4 mg Q6HR PRN IVP Nausea & Vomiting 03/10/17 08:30 04/09/17 08:29 Pantoprazole 40 mg 40 mg ACBREAKFAST ORAL 03/10/17 09:00 04/09/17 08:59 03/11/17 06:09 Sodium Chloride (0.45% NS 1000ml) 1,000 ml @ 75 mls/hr [id number] IV 03/10/17 13:00 04/09/17 12:59 03/12/17 05:00 Thiamine HCl (Vitamin B1) 100 mg DAILY ORAL 03/11/17 15:30 04/10/17 15:29 03/12/17 12:45 Markos Davis M.D. Mar 12, 2017 15:18
--- NOTE | 2017-03-12 21:04 | General Progress Note ---
Assessment/Plan Problem List: (1) Gastritis ICD Codes: K29.70 - Gastritis, unspecified, without bleeding SNOMED: 7048797 Qualifiers: Qualified Codes: K29.21 - Alcoholic gastritis with bleeding (2) Alcohol abuse ICD Codes: F10.10 - Alcohol abuse, uncomplicated SNOMED: 23353458 (3) Abdominal pain ICD Codes: R10.9 - Unspecified abdominal pain SNOMED: 72925239 (4) Nausea & vomiting ICD Codes: R11.2 - Nausea with vomiting, unspecified SNOMED: 98626082 Status: progressing Assessment/Plan abdominal pain improving reveiwed chart and labs afebrile no wheezing no acute events Subjective ROS Limited/Unobtainable: Yes Allergies: Coded Allergies: No Known Allergies (Unverified , 12/04/15) Objective Last 24 Hour Vital Signs Date Time Temp Pulse Resp B/P Pulse Ox O2 Delivery O2 Flow Rate FiO2 03/12/17 20:00 97.9 75 18 140/100 100 Room Air 03/12/17 16:00 96.1 76 20 152/90 99 Room Air 03/12/17 14:00 75 158/100 03/12/17 11:54 97.3 67 20 163/98 99 Room Air 03/12/17 11:52 97.4 76 20 163/110 98 Room Air 03/12/17 08:43 97.4 76 20 163/110 98 Room Air 03/12/17 07:52 98.1 70 13 146/96 100 Room Air 03/12/17 07:30 68 18 152/86 100 Room Air 03/12/17 07:29 68 18 100 03/12/17 07:27 61 18 100 03/12/17 07:20 16 154/91 99 Room Air 03/12/17 07:15 98.1 74 15 149/95 100 Room Air Intake and Output 03/11/17 03/12/17 19:00 07:00 Intake Total 880 ml 750 ml Balance 880 ml 750 ml IV Total 880 ml 750 ml # Voids 2 Height (Feet): 5 Height (Inches): 2.00 Weight (Pounds): 131 Neck: supple Respiratory/Chest: lungs clear Abdomen: soft Javon Crisostomo MD Mar 12, 2017 21:04
[2017-03-13] VITALS (8 sets, daily range): BP systolic 137–166; BP diastolic 84–110
[2017-03-13] MEDS: HYDROmorphone 1mg/ml Carpuject IVP PRN ×6 (01:46→21:42)
--- NOTE | 2017-03-13 03:47 | Progress Note ---
SUBJECTIVE: The patient is stable at baseline. No behavior issues. Calm and cooperative. She is complaining of depression, depressed mood, anhedonia, hopelessness, and helplessness. The patient also has anxiety and she has been started on fluoxetine 20 mg as well as Remeron at night. The patient's withdrawal symptoms are managed. MENTAL STATUS EXAMINATION: The patient is alert and oriented x3. Mood is depressed. Affect is constricted, congruent with mood. Thought process is concrete. Thought content, no suicidal or homicidal ideations. PLAN: 1. The patient will be continued on fluoxetine 20 mg in the morning. 2. Remeron 7.5 mg at bedtime. 3. We will continue to follow and readjust the medication. Kamryn Hernandez M.D. DR: Tiffany JOB#: [id number] CC:
[2017-03-13] MEDS: Thiamine 100mg tab ORAL SCH (09:41)
[2017-03-13 10:17] LABS: MEAN CORPUSCULAR HEMOGLOBIN 38.3 PG (27.0-31.0); MEAN CORPUSCULAR VOLUME 113 FL (80-99); MEAN PLATELET VOLUME 5.2 FL (6.5-10.1); PLATELET COUNT 269 K/UL (150-450); RED BLOOD COUNT 2.85 M/UL (4.20-5.40); RED CELL DISTRIBUTION WIDTH 12.9 % (11.6-14.8); WHITE BLOOD COUNT 4.9 K/UL (4.8-10.8)
[2017-03-13 10:19] LABS: ALANINE AMINOTRANSFERASE 11 U/L (3-33); ALBUMIN/GLOBULIN RATIO 1.3 (1.0-2.7); ANION GAP 12 (5-15); ASPARTATE AMINO TRANSFERASE 31 U/L (5-40); CALCIUM 8.9 mg/dL (8.6-10.2); CARBON DIOXIDE 25 mEQ/L (20-30); CHLORIDE 103 mEQ/L (98-107); CREATININE 0.5 mg/dL (0.5-0.9); GLOMERULAR FILTRATION RATE > 60 mL/min (>60); HEMOLYSIS 3; MAGNESIUM 1.3 mg/dL (1.7-2.5); PHOSPHORUS 3.4 mg/dL (2.5-4.8); POTASSIUM 3.9 mEQ/L (3.4-4.9); SODIUM 140 mEQ/L (135-145); TOTAL PROTEIN 6.6 g/dL (6.6-8.7)
--- NOTE | 2017-03-13 10:31 | Consultation ---
Consult Note Consult Note asked to eval for HTN and treatment Assessment/Plan - EtOH abuse - epigastric pain, presumed EtOH gastritis - Macrocytosis - Anemia Plan: DC IV Decrease pain meds- DC ?? check Iron panel Norvasc for high BP MEL PAINTING Mar 13, 2017 10:31
[2017-03-13 11:00] LABS: BAND NEUTROPHILS % (MANUAL) 0 % (0-8); BASOPHILS % (MANUAL) 0 % (0-2); EOSINOPHILS % (MANUAL) 6 % (0-3); LYMPHOCYTES % (MANUAL) 27 % (20-45); MACROCYTES 1+; NEUTROPHILS % (MANUAL) 64 % (45-75); PLATELET ESTIMATE ADEQUATE; PLATELET MORPHOLOGY NORMAL; TOTAL CELLS COUNTED 100
--- NOTE | 2017-03-13 11:45 | General Progress Note ---
Assessment/Plan Assessment/Plan Assessment - EtOH abuse - epigastric pain, presumed EtOH gastritis - negative EGD - negative CT - negative labs - Macrocytosis Recommendations - push po - d/c planning - outpt f/u Subjective Allergies: Coded Allergies: No Known Allergies (Unverified , 12/04/15) Subjective Feel same tolerating PO some abd pain Objective Last 24 Hour Vital Signs Date Time Temp Pulse Resp B/P Pulse Ox O2 Delivery O2 Flow Rate FiO2 03/13/17 11:28 97.6 79 18 148/84 99 Room Air 03/13/17 08:11 97.5 76 19 140/89 98 Room Air 03/13/17 06:12 97.2 03/13/17 05:34 68 146/103 03/13/17 04:00 97.2 72 18 152/106 100 Room Air 03/13/17 01:00 71 137/101 98 Room Air 03/13/17 00:17 166/102 03/13/17 00:00 97.2 72 18 152/106 Room Air 03/13/17 00:00 97.5 60 20 166/102 Room Air 03/12/17 20:00 97.9 75 18 140/100 100 Room Air 03/12/17 16:00 96.1 76 20 152/90 99 Room Air 03/12/17 14:00 75 158/100 03/12/17 11:54 97.3 67 20 163/98 99 Room Air 03/12/17 11:52 97.4 76 20 163/110 98 Room Air Intake and Output 03/12/17 03/13/17 19:00 07:00 Intake Total 1460 ml 1065 ml Output Total 0 ml Balance 1460 ml 1065 ml Intake Oral 660 ml 240 ml IV Total 800 ml 825 ml Output Estimated Blood Loss 0 ml # Voids 3 5 # Bowel Movements 1 Laboratory Tests 03/13/17 09:30: White Blood Count 4.9, Red Blood Count 2.85L, Hemoglobin 10.9L, Hematocrit 32.2L , Mean Corpuscular Volume 113H, Mean Corpuscular Hemoglobin 38.3H, Mean Corpuscular Hemoglobin Concent 34.0, Red Cell Distribution Width 12.9, Platelet Count 269, Mean Platelet Volume 5.2L, Neutrophils (%) (Auto) , Lymphocytes (%) ( Auto) , Monocytes (%) (Auto) , Eosinophils (%) (Auto) , Basophils (%) (Auto) , Differential Total Cells Counted 100, Neutrophils % (Manual) 64, Lymphocytes % ( Manual) 27, Monocytes % (Manual) 3, Eosinophils % (Manual) 6H, Basophils % ( Manual) 0, Band Neutrophils 0, Platelet Estimate Adequate, Platelet Morphology Normal, Macrocytosis 1+, Sodium Level 140, Potassium Level 3.9, Chloride Level 103, Carbon Dioxide Level 25, Anion Gap 12, Blood Urea Nitrogen 7, Creatinine 0.5, Estimat Glomerular Filtration Rate > 60, Glucose Level 110H, Calcium Level 8.9, Phosphorus Level 3.4, Magnesium Level 1.3L, Total Bilirubin 0.4, Aspartate Amino Transf (AST/SGOT) 31, Alanine Aminotransferase (ALT/SGPT) 11, Alkaline Phosphatase 105H, Total Protein 6.6, Albumin 3.8, Globulin 2.8, Albumin/ Globulin Ratio 1.3 Height (Feet): 5 Height (Inches): 2.00 Weight (Pounds): 131 Objective WDWn NCAT supple CTA RRR Soft ND, Less TTP epigastric no edema non focal CLIFF HALL Mar 13, 2017 11:45
--- NOTE | 2017-03-13 12:39 | General Progress Note ---
Assessment/Plan Problem List: (1) Gastritis ICD Codes: K29.70 - Gastritis, unspecified, without bleeding SNOMED: 7746065 Qualifiers: Qualified Codes: K29.21 - Alcoholic gastritis with bleeding (2) Alcohol abuse ICD Codes: F10.10 - Alcohol abuse, uncomplicated SNOMED: 30516413 (3) Abdominal pain ICD Codes: R10.9 - Unspecified abdominal pain SNOMED: 50518081 (4) Nausea & vomiting ICD Codes: R11.2 - Nausea with vomiting, unspecified SNOMED: 69113891 Status: progressing Assessment/Plan abdominal pain improving no v/d afebrile labs ordered clinically improving Subjective ROS Limited/Unobtainable: Yes Constitutional: Reports: no symptoms Allergies: Coded Allergies: No Known Allergies (Unverified , 12/04/15) Objective Last 24 Hour Vital Signs Date Time Temp Pulse Resp B/P Pulse Ox O2 Delivery O2 Flow Rate FiO2 03/13/17 12:15 79 148/84 03/13/17 11:28 97.6 79 18 148/84 99 Room Air 03/13/17 08:11 97.5 76 19 140/89 98 Room Air 03/13/17 06:12 97.2 03/13/17 05:34 68 146/103 03/13/17 04:00 97.2 72 18 152/106 100 Room Air 03/13/17 01:00 71 137/101 98 Room Air 03/13/17 00:17 166/102 03/13/17 00:00 97.2 72 18 152/106 Room Air 03/13/17 00:00 97.5 60 20 166/102 Room Air 03/12/17 20:00 97.9 75 18 140/100 100 Room Air 03/12/17 16:00 96.1 76 20 152/90 99 Room Air 03/12/17 14:00 75 158/100 Intake and Output 03/12/17 03/13/17 19:00 07:00 Intake Total 1460 ml 1065 ml Output Total 0 ml Balance 1460 ml 1065 ml Intake Oral 660 ml 240 ml IV Total 800 ml 825 ml Output Estimated Blood Loss 0 ml # Voids 3 5 # Bowel Movements 1 Laboratory Tests 03/13/17 09:30: White Blood Count 4.9, Red Blood Count 2.85L, Hemoglobin 10.9L, Hematocrit 32.2L , Mean Corpuscular Volume 113H, Mean Corpuscular Hemoglobin 38.3H, Mean Corpuscular Hemoglobin Concent 34.0, Red Cell Distribution Width 12.9, Platelet Count 269, Mean Platelet Volume 5.2L, Neutrophils (%) (Auto) , Lymphocytes (%) ( Auto) , Monocytes (%) (Auto) , Eosinophils (%) (Auto) , Basophils (%) (Auto) , Differential Total Cells Counted 100, Neutrophils % (Manual) 64, Lymphocytes % ( Manual) 27, Monocytes % (Manual) 3, Eosinophils % (Manual) 6H, Basophils % ( Manual) 0, Band Neutrophils 0, Platelet Estimate Adequate, Platelet Morphology Normal, Macrocytosis 1+, Sodium Level 140, Potassium Level 3.9, Chloride Level 103, Carbon Dioxide Level 25, Anion Gap 12, Blood Urea Nitrogen 7, Creatinine 0.5, Estimat Glomerular Filtration Rate > 60, Glucose Level 110H, Calcium Level 8.9, Phosphorus Level 3.4, Magnesium Level 1.3L, Total Bilirubin 0.4, Aspartate Amino Transf (AST/SGOT) 31, Alanine Aminotransferase (ALT/SGPT) 11, Alkaline Phosphatase 105H, Total Protein 6.6, Albumin 3.8, Globulin 2.8, Albumin/ Globulin Ratio 1.3 Height (Feet): 5 Height (Inches): 2.00 Weight (Pounds): 131 Neck: supple Cardiovascular: normal rate Respiratory/Chest: lungs clear Abdomen: soft Javon Crisostomo MD Mar 13, 2017 12:39
--- NOTE | 2017-03-13 15:40 | Infectious Diseases Prog Note ---
Assessment/Plan Problems: (1) UTI (urinary tract infection) Assessment & Plan: urine culture is negative , off ceftriaxon (2) AA (alcohol abuse) Assessment & Plan: recommend counseling and rehabilitation (3) Abdominal pain Assessment & Plan: S/P EGD which showed gastritis , CT abdomen showed calcification at the pancreatic head, GI is following (4) Nausea & vomiting Assessment & Plan: resolved, continue supportive care , and nausea medicine Subjective Constitutional: Reports: no symptoms HEENT: Reports: no symptoms Respiratory: Reports: no symptoms Breasts: Reports: no symptoms Cardiovascular: Reports: no symptoms Gastrointestinal/Abdominal: Reports: no symptoms Genitourinary: Reports: no symptoms Neurologic: Reports: no symptoms Psychiatric: Reports: no symptoms Skin: Reports: no symptoms Endocrine: Reports: no symptoms Hematologic: Reports: no symptoms Musculoskeletal: Reports: no symptoms Allergies: Coded Allergies: No Known Allergies (Unverified , 12/04/15) Objective Vital Signs Last 24 Hour Vital Signs Date Time Temp Pulse Resp B/P Pulse Ox O2 Delivery O2 Flow Rate FiO2 03/13/17 12:15 79 148/84 03/13/17 11:28 97.6 79 18 148/84 99 Room Air 03/13/17 08:11 97.5 76 19 140/89 98 Room Air 03/13/17 06:12 97.2 03/13/17 05:34 68 146/103 03/13/17 04:00 97.2 72 18 152/106 100 Room Air 03/13/17 01:00 71 137/101 98 Room Air 03/13/17 00:17 166/102 03/13/17 00:00 97.2 72 18 152/106 Room Air 03/13/17 00:00 97.5 60 20 166/102 Room Air 03/12/17 20:00 97.9 75 18 140/100 100 Room Air 03/12/17 16:00 96.1 76 20 152/90 99 Room Air Height (Feet): 5 Height (Inches): 2.00 Weight (Pounds): 131 General Appearance: WD/WN, no acute distress HEENT: normocephalic, atraumatic, anicteric, mucous membranes moist Respiratory/Chest: chest wall non-tender, lungs clear, normal breath sounds, no respiratory distress, no accessory muscle use Cardiovascular: normal peripheral pulses, normal rate, regular rhythm, no gallop/murmur, no JVD Abdomen: normal bowel sounds, soft, non tender, no organomegaly, non distended , no mass Extremities: no cyanosis, no clubbing Skin: no rash, no lesions Microbiology Date/Time Source Procedure Growth Status 03/10/17 16:30 Nasal Nares MRSA Culture - Final NO METHICILLIN RESISTANT STAPH AUREUS... Complete 03/10/17 16:30 Rectum VRE Culture - Final NO VANCOMYCIN RESISTANT ENTEROCOCCUS ... Complete Laboratory Tests Test 03/13/17 09:30 White Blood Count 4.9 K/UL (4.8-10.8) Red Blood Count 2.85 M/UL (4.20-5.40) L Hemoglobin 10.9 G/DL (12.0-16.0) L Hematocrit 32.2 % (37.0-47.0) L Mean Corpuscular Volume 113 FL (80-99) H Mean Corpuscular Hemoglobin 38.3 PG (27.0-31.0) H Mean Corpuscular Hemoglobin Concent 34.0 G/DL (32.0-36.0) Red Cell Distribution Width 12.9 % (11.6-14.8) Platelet Count 269 K/UL (150-450) Mean Platelet Volume 5.2 FL (6.5-10.1) L Neutrophils (%) (Auto) % (45.0-75.0) Lymphocytes (%) (Auto) % (20.0-45.0) Monocytes (%) (Auto) % (1.0-10.0) Eosinophils (%) (Auto) % (0.0-3.0) Basophils (%) (Auto) % (0.0-2.0) Differential Total Cells Counted 100 Neutrophils % (Manual) 64 % (45-75) Lymphocytes % (Manual) 27 % (20-45) Monocytes % (Manual) 3 % (1-10) Eosinophils % (Manual) 6 % (0-3) H Basophils % (Manual) 0 % (0-2) Band Neutrophils 0 % (0-8) Platelet Estimate Adequate Platelet Morphology Normal Macrocytosis 1+ Sodium Level 140 mEQ/L (135-145) Potassium Level 3.9 mEQ/L (3.4-4.9) Chloride Level 103 mEQ/L (98-107) Carbon Dioxide Level 25 mEQ/L (20-30) Anion Gap 12 (5-15) Blood Urea Nitrogen 7 mg/dL (7-23) Creatinine 0.5 mg/dL (0.5-0.9) Estimat Glomerular Filtration Rate > 60 mL/min (>60) Glucose Level 110 mg/dL (74-106) H Calcium Level 8.9 mg/dL (8.6-10.2) Phosphorus Level 3.4 mg/dL (2.5-4.8) Magnesium Level 1.3 mg/dL (1.7-2.5) L Total Bilirubin 0.4 mg/dL (0.0-1.2) Aspartate Amino Transf (AST/SGOT) 31 U/L (5-40) Alanine Aminotransferase (ALT/SGPT) 11 U/L (3-33) Alkaline Phosphatase 105 U/L (35-104) H Total Protein 6.6 g/dL (6.6-8.7) Albumin 3.8 g/dL (3.5-5.2) Globulin 2.8 g/dL Albumin/Globulin Ratio 1.3 (1.0-2.7) Current Medications Medications (Trade) Dose Ordered Sig/Henrry Route PRN Reason Start Time Stop Time Status Last Admin Dose Admin Acetaminophen (Tylenol) 650 mg Q4H PRN ORAL PAIN/TEMP >100.4 03/10/17 08:00 04/09/17 07:59 03/13/17 08:04 Amlodipine Besylate (Norvasc) 5 mg DAILY ORAL 03/13/17 11:00 04/12/17 10:59 03/13/17 12:15 Clonidine HCl (Catapres) 0.1 mg Q4H PRN ORAL for SBP >160 03/12/17 16:00 04/11/17 15:59 03/13/17 00:17 Diazepam (Valium) 10 mg Q4H PRN ORAL anxiety/alcohol withdrawal 03/10/17 19:30 03/17/17 19:29 Fluoxetine HCl (PROzac) 20 mg DAILY ORAL 03/11/17 09:00 04/10/17 08:59 03/13/17 09:41 Gabapentin (Neurontin) 100 mg THREE TIMES A DAY ORAL 03/11/17 15:30 04/10/17 15:29 03/13/17 12:14 Hydromorphone HCl (Dilaudid) 0.5 mg Q15M PRN IVP Severe Pain (Pain Scale 7-10) 03/12/17 07:00 Hydromorphone HCl (Dilaudid) 1 mg Q4H PRN IVP For Pain 4-10 03/10/17 15:30 03/17/17 15:29 03/13/17 13:40 Mirtazapine (Remeron) 7.5 mg BEDTIME ORAL 03/10/17 21:00 04/09/17 20:59 03/12/17 21:05 Ondansetron HCl (Zofran) 4 mg Q6HR PRN IVP Nausea & Vomiting 03/10/17 08:30 04/09/17 08:29 Pantoprazole (Protonix) 40 mg ACBREAKFAST ORAL 03/10/17 09:00 04/09/17 08:59 03/13/17 06:17 Thiamine HCl (Vitamin B1) 100 mg DAILY ORAL 03/11/17 15:30 04/10/17 15:29 03/13/17 09:41 Markos Davis M.D. Mar 13, 2017 15:40
[2017-03-13] MEDS ORDERED: 1/2 NS 1000ml IV ONE (16:54)
[2017-03-14] VITALS: BP 149/99
[2017-03-14] MEDS: HYDROmorphone 1mg/ml Carpuject IVP PRN ×6 (01:44→22:11)
[2017-03-14 04:00] VITALS: BP 138/97
[2017-03-14] MEDS: Thiamine 100mg tab ORAL SCH (08:20)
[2017-03-14 08:39] VITALS: BP 179/106
--- NOTE | 2017-03-14 09:15 | General Progress Note ---
Assessment/Plan Problem List: (1) Gastritis ICD Codes: K29.70 - Gastritis, unspecified, without bleeding SNOMED: 5220331 Qualifiers: Qualified Codes: K29.21 - Alcoholic gastritis with bleeding (2) Alcohol abuse ICD Codes: F10.10 - Alcohol abuse, uncomplicated SNOMED: 12271089 (3) Abdominal pain ICD Codes: R10.9 - Unspecified abdominal pain SNOMED: 41332049 (4) Nausea & vomiting ICD Codes: R11.2 - Nausea with vomiting, unspecified SNOMED: 89504948 Status: progressing Assessment/Plan abdominal pain improving no v/d afebrile dc in am reviewed chart and labs Subjective ROS Limited/Unobtainable: Yes Constitutional: Reports: no symptoms Allergies: Coded Allergies: No Known Allergies (Unverified , 12/04/15) Objective Last 24 Hour Vital Signs Date Time Temp Pulse Resp B/P Pulse Ox O2 Delivery O2 Flow Rate FiO2 03/14/17 08:39 96.6 78 19 179/106 99 Room Air 03/14/17 08:23 179/98 03/14/17 08:21 75 179/98 03/14/17 04:00 97.6 72 18 138/97 99 Room Air 03/14/17 00:00 97.8 73 17 149/99 99 Room Air 03/13/17 20:00 97.7 74 17 139/110 100 Room Air 03/13/17 15:58 97.5 71 18 149/98 96 Room Air 03/13/17 12:15 79 148/84 03/13/17 11:28 97.6 79 18 148/84 99 Room Air Intake and Output 03/13/17 03/14/17 19:00 07:00 Intake Total 800 ml 480 ml Balance 800 ml 480 ml Intake Oral 800 ml 480 ml # Voids 4 2 Laboratory Tests 03/13/17 09:30: White Blood Count 4.9, Red Blood Count 2.85L, Hemoglobin 10.9L, Hematocrit 32.2L , Mean Corpuscular Volume 113H, Mean Corpuscular Hemoglobin 38.3H, Mean Corpuscular Hemoglobin Concent 34.0, Red Cell Distribution Width 12.9, Platelet Count 269, Mean Platelet Volume 5.2L, Neutrophils (%) (Auto) , Lymphocytes (%) ( Auto) , Monocytes (%) (Auto) , Eosinophils (%) (Auto) , Basophils (%) (Auto) , Differential Total Cells Counted 100, Neutrophils % (Manual) 64, Lymphocytes % ( Manual) 27, Monocytes % (Manual) 3, Eosinophils % (Manual) 6H, Basophils % ( Manual) 0, Band Neutrophils 0, Platelet Estimate Adequate, Platelet Morphology Normal, Macrocytosis 1+, Sodium Level 140, Potassium Level 3.9, Chloride Level 103, Carbon Dioxide Level 25, Anion Gap 12, Blood Urea Nitrogen 7, Creatinine 0.5, Estimat Glomerular Filtration Rate > 60, Glucose Level 110H, Calcium Level 8.9, Phosphorus Level 3.4, Magnesium Level 1.3L, Total Bilirubin 0.4, Aspartate Amino Transf (AST/SGOT) 31, Alanine Aminotransferase (ALT/SGPT) 11, Alkaline Phosphatase 105H, Total Protein 6.6, Albumin 3.8, Globulin 2.8, Albumin/ Globulin Ratio 1.3 Height (Feet): 5 Height (Inches): 2.00 Weight (Pounds): 131 Cardiovascular: normal rate Respiratory/Chest: lungs clear Abdomen: non tender, soft Javon Crisostomo MD Mar 14, 2017 09:15
[2017-03-14] MEDS ORDERED: Metoprolol 25mg tab ORAL ONE (10:30)
--- NOTE | 2017-03-14 11:05 | General Progress Note ---
Assessment/Plan Status: stable Status Narrative BP fluctuates Assessment/Plan - EtOH abuse - epigastric pain, presumed EtOH gastritis - Macrocytosis - Anemia - HTN Plan: DC IV ?? Decrease pain meds- DC ?? Norvasc for high BP, will add lopressor Subjective ROS Limited/Unobtainable: No Constitutional: Reports: malaise Gastrointestinal/Abdominal: Reports: abdominal pain Allergies: Coded Allergies: No Known Allergies (Unverified , 12/04/15) Objective Last 24 Hour Vital Signs Date Time Temp Pulse Resp B/P Pulse Ox O2 Delivery O2 Flow Rate FiO2 03/14/17 08:39 96.6 78 19 179/106 99 Room Air 03/14/17 08:23 179/98 03/14/17 08:21 75 179/98 03/14/17 04:00 97.6 72 18 138/97 99 Room Air 03/14/17 00:00 97.8 73 17 149/99 99 Room Air 03/13/17 20:00 97.7 74 17 139/110 100 Room Air 03/13/17 15:58 97.5 71 18 149/98 96 Room Air 03/13/17 12:15 79 148/84 03/13/17 11:28 97.6 79 18 148/84 99 Room Air Intake and Output 03/13/17 03/14/17 19:00 07:00 Intake Total 800 ml 480 ml Balance 800 ml 480 ml Intake Oral 800 ml 480 ml # Voids 4 2 Height (Feet): 5 Height (Inches): 2.00 Weight (Pounds): 131 General Appearance: no apparent distress Objective no change in PE MEL PAINTING Mar 14, 2017 11:05
--- NOTE | 2017-03-14 11:13 | General Progress Note ---
Assessment/Plan Assessment/Plan (1) Intractable abdominal pain (2) Alcohol abuse (3) Pancreatitis We will continue Dilaudid as needed. We will start Neurontin 300mg TID and Robaxin 500mg Q8H PRN. D/w Dr. Nunes and he concurred. Subjective Date patient seen: Mar 14, 2017 Time patient seen: 11:15 - am Constitutional: Reports: no symptoms HEENT: Reports: no symptoms Cardiovascular: Reports: no symptoms Respiratory: Reports: no symptoms Gastrointestinal/Abdominal: Reports: abdominal pain Genitourinary: Reports: no symptoms Neurologic/Psychiatric: Reports: tingling, weakness Endocrine: Reports: no symptoms Hematologic/Lymphatic: Reports: no symptoms Allergies: Coded Allergies: No Known Allergies (Unverified , 12/04/15) Subjective Patient is sitting up in bed and reports that she continues to have pain rating it a 7/10 at this time tolerated on the Dilaudid. Objective Last 24 Hour Vital Signs Date Time Temp Pulse Resp B/P Pulse Ox O2 Delivery O2 Flow Rate FiO2 03/14/17 08:39 96.6 78 19 179/106 99 Room Air 03/14/17 08:23 179/98 03/14/17 08:21 75 179/98 03/14/17 04:00 97.6 72 18 138/97 99 Room Air 03/14/17 00:00 97.8 73 17 149/99 99 Room Air 03/13/17 20:00 97.7 74 17 139/110 100 Room Air 03/13/17 15:58 97.5 71 18 149/98 96 Room Air 03/13/17 12:15 79 148/84 03/13/17 11:28 97.6 79 18 148/84 99 Room Air Intake and Output 03/13/17 03/14/17 19:00 07:00 Intake Total 800 ml 480 ml Balance 800 ml 480 ml Intake Oral 800 ml 480 ml # Voids 4 2 Height (Feet): 5 Height (Inches): 2.00 Weight (Pounds): 131 General Appearance: no apparent distress, alert EENT: PERRL/EOMI, normal ENT inspection Neck: non-tender, normal alignment Cardiovascular: normal rate, regular rhythm Abdomen: tender Extremities: non-tender, normal inspection Edema: no edema noted Arm (L), no edema noted Arm (R), no edema noted Leg (L), no edema noted Leg (R), no edema noted Pedal (L), no edema noted Pedal (R), no edema noted Generalized Neurologic: alert, oriented x 3 Skin: warm/dry KENNY BWOER Mar 14, 2017 11:13
[2017-03-14 12:11] VITALS: BP 157/108
[2017-03-14] MEDS: Methocarbamol 500mg tab ORAL PRN (15:17)
[2017-03-14 16:00] VITALS: BP 137/96
--- NOTE | 2017-03-14 18:37 | General Progress Note ---
Assessment/Plan Assessment/Plan Assessment - EtOH abuse - epigastric pain, presumed EtOH gastritis - negative EGD - negative CT - negative labs - Macrocytosis Recommendations - push po - OK to d/c from GI standpoint - outpt f/u Subjective Allergies: Coded Allergies: No Known Allergies (Unverified , 12/04/15) Subjective Feel same tolerating PO some abd pain Objective Last 24 Hour Vital Signs Date Time Temp Pulse Resp B/P Pulse Ox O2 Delivery O2 Flow Rate FiO2 03/14/17 18:10 74 137/96 03/14/17 16:00 97.3 74 20 137/96 96 Room Air 03/14/17 12:11 98.1 84 19 157/108 98 Room Air 03/14/17 11:49 78 157/102 03/14/17 08:39 96.6 78 19 179/106 99 Room Air 03/14/17 08:23 179/98 03/14/17 08:21 75 179/98 03/14/17 04:00 97.6 72 18 138/97 99 Room Air 03/14/17 00:00 97.8 73 17 149/99 99 Room Air 03/13/17 20:00 97.7 74 17 139/110 100 Room Air Intake and Output 03/13/17 03/14/17 19:00 07:00 Intake Total 800 ml 480 ml Balance 800 ml 480 ml Intake Oral 800 ml 480 ml # Voids 4 2 Height (Feet): 5 Height (Inches): 2.00 Weight (Pounds): 131 Objective WDWn NCAT supple CTA RRR Soft ND, Less TTP epigastric no edema non focal CLIFF HALL Mar 14, 2017 18:37
[2017-03-14 20:00] VITALS: BP 154/72
[2017-03-14] MEDS ORDERED: Metoprolol 25mg tab ORAL SCH (21:00)
--- NOTE | 2017-03-14 22:05 | Infectious Diseases Prog Note ---
Assessment/Plan Problems: (1) UTI (urinary tract infection) Assessment & Plan: urine culture is negative , off ceftriaxon (2) AA (alcohol abuse) Assessment & Plan: recommend counseling and rehabilitation (3) Abdominal pain Assessment & Plan: S/P EGD which showed gastritis , CT abdomen showed calcification at the pancreatic head, GI is following (4) Nausea & vomiting Assessment & Plan: resolved, continue supportive care , and nausea medicine Subjective Constitutional: Reports: no symptoms HEENT: Reports: no symptoms Respiratory: Reports: no symptoms Breasts: Reports: no symptoms Cardiovascular: Reports: no symptoms Gastrointestinal/Abdominal: Reports: no symptoms Genitourinary: Reports: no symptoms Neurologic: Reports: no symptoms Psychiatric: Reports: no symptoms Skin: Reports: no symptoms Endocrine: Reports: no symptoms Allergies: Coded Allergies: No Known Allergies (Unverified , 12/04/15) Objective Vital Signs Last 24 Hour Vital Signs Date Time Temp Pulse Resp B/P Pulse Ox O2 Delivery O2 Flow Rate FiO2 03/14/17 21:10 105 154/72 03/14/17 20:00 98.1 105 21 154/72 93 Room Air 03/14/17 18:10 74 137/96 03/14/17 16:00 97.3 74 20 137/96 96 Room Air 03/14/17 12:11 98.1 84 19 157/108 98 Room Air 03/14/17 11:49 78 157/102 03/14/17 08:39 96.6 78 19 179/106 99 Room Air 03/14/17 08:23 179/98 03/14/17 08:21 75 179/98 03/14/17 04:00 97.6 72 18 138/97 99 Room Air 03/14/17 00:00 97.8 73 17 149/99 99 Room Air Height (Feet): 5 Height (Inches): 2.00 Weight (Pounds): 131 General Appearance: WD/WN, no acute distress HEENT: normocephalic, atraumatic, anicteric, mucous membranes moist, PERRL Respiratory/Chest: chest wall non-tender, lungs clear, normal breath sounds, no respiratory distress, no accessory muscle use Cardiovascular: normal peripheral pulses, normal rate, regular rhythm, no gallop/murmur, no JVD Abdomen: normal bowel sounds, soft, non tender, no organomegaly, non distended , no mass, no scars Extremities: no cyanosis, no clubbing Skin: no rash, no lesions, no ulcers Current Medications Medications (Trade) Dose Ordered Sig/Henrry Route PRN Reason Start Time Stop Time Status Last Admin Dose Admin Acetaminophen (Tylenol) 650 mg Q4H PRN ORAL PAIN/TEMP >100.4 03/10/17 08:00 04/09/17 07:59 03/13/17 08:04 Amlodipine Besylate (Norvasc) 5 mg BID ORAL 03/14/17 18:00 04/13/17 17:59 03/14/17 18:10 Clonidine HCl (Catapres) 0.1 mg Q4H PRN ORAL for SBP >160 03/12/17 16:00 04/11/17 15:59 03/14/17 08:23 Diazepam (Valium) 10 mg Q4H PRN ORAL anxiety/alcohol withdrawal 03/10/17 19:30 03/17/17 19:29 Fluoxetine HCl (PROzac) 20 mg DAILY ORAL 03/11/17 09:00 04/10/17 08:59 03/14/17 08:20 Gabapentin (Neurontin) 300 mg THREE TIMES A DAY ORAL 03/14/17 13:00 04/13/17 12:59 03/14/17 18:09 Hydromorphone HCl (Dilaudid) 0.5 mg Q15M PRN IVP Severe Pain (Pain Scale 7-10) 03/12/17 07:00 Hydromorphone HCl (Dilaudid) 1 mg Q4H PRN IVP For Pain 4-10 03/10/17 15:30 03/17/17 15:29 03/14/17 18:10 Methocarbamol (Robaxin) 500 mg Q8H PRN ORAL Muscle Spasm 03/14/17 12:00 04/13/17 11:59 03/14/17 15:17 Metoprolol Tartrate (Lopressor) 25 mg Q12HR ORAL 03/14/17 21:00 04/13/17 20:59 03/14/17 21:10 Mirtazapine (Remeron) 7.5 mg BEDTIME ORAL 03/10/17 21:00 04/09/17 20:59 03/14/17 21:10 Ondansetron HCl (Zofran) 4 mg Q6HR PRN IVP Nausea & Vomiting 03/10/17 08:30 04/09/17 08:29 Pantoprazole (Protonix) 40 mg ACBREAKFAST ORAL 03/10/17 09:00 04/09/17 08:59 03/14/17 05:47 Thiamine HCl (Vitamin B1) 100 mg DAILY ORAL 03/11/17 15:30 04/10/17 15:29 03/14/17 08:20 Markos Davis M.D. Mar 14, 2017 22:05
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
[2017-03-15] VITALS: BP 138/79
[2017-03-15] MEDS: HYDROmorphone 1mg/ml Carpuject IVP PRN ×4 (02:19→14:21)
[2017-03-15 04:00] VITALS: BP 146/81
[2017-03-15 07:03] LABS: MEAN CORPUSCULAR HEMOGLOBIN 38.9 PG (27.0-31.0); MEAN CORPUSCULAR HGB CONC 34.9 G/DL (32.0-36.0); MEAN CORPUSCULAR VOLUME 112 FL (80-99); MEAN PLATELET VOLUME 5.4 FL (6.5-10.1); PLATELET COUNT 274 K/UL (150-450); RED CELL DISTRIBUTION WIDTH 13.5 % (11.6-14.8); WHITE BLOOD COUNT 5.1 K/UL (4.8-10.8)
[2017-03-15 07:21] LABS: ALANINE AMINOTRANSFERASE 11 U/L (3-33); ALBUMIN/GLOBULIN RATIO 1.5 (1.0-2.7); ANION GAP 10 (5-15); ASPARTATE AMINO TRANSFERASE 21 U/L (5-40); CALCIUM 9.6 mg/dL (8.6-10.2); CARBON DIOXIDE 29 mEQ/L (20-30); CHLORIDE 100 mEQ/L (98-107); CREATININE 0.7 mg/dL (0.5-0.9); CRP QUANT 0.5 mg/dL (< 0.5); GLOMERULAR FILTRATION RATE > 60 mL/min (>60); LIPASE 75 U/L (< 60); MAGNESIUM 1.5 mg/dL (1.7-2.5); PHOSPHORUS 4.1 mg/dL (2.5-4.8); POTASSIUM 4.1 mEQ/L (3.4-4.9); SODIUM 139 mEQ/L (135-145); TOTAL PROTEIN 6.7 g/dL (6.6-8.7)
[2017-03-15 07:26] LABS: FERRITIN 96 ng/mL (13-150); HEMOLYSIS 0; IRON 37 ug/dL (37-145); TOTAL IRON BINDING CAPACITY 383 ug/dL (250-400)
[2017-03-15 08:15] VITALS: BP 154/106
[2017-03-15] MEDS: Thiamine 100mg tab ORAL SCH (08:20)
[2017-03-15] MEDS: Methocarbamol 500mg tab ORAL PRN ×2 (08:20→17:54)
--- NOTE | 2017-03-15 08:32 | General Progress Note ---
Assessment/Plan Assessment/Plan (1) Intractable abdominal pain (2) Alcohol abuse (3) Pancreatitis We will continue Dilaudid as needed, Neurontin and Robaxin. D/w Dr. Nunes and he concurred. Subjective Date patient seen: Mar 15, 2017 Time patient seen: 07:30 - am Constitutional: Reports: no symptoms HEENT: Reports: no symptoms Cardiovascular: Reports: no symptoms Respiratory: Reports: no symptoms Gastrointestinal/Abdominal: Reports: abdominal pain Genitourinary: Reports: no symptoms Neurologic/Psychiatric: Reports: numbness, tingling Endocrine: Reports: no symptoms Hematologic/Lymphatic: Reports: no symptoms Allergies: Coded Allergies: No Known Allergies (Unverified , 12/04/15) Subjective Patient reports that the pain has been better tolerated and is reduced on the Dilaudid. Objective Last 24 Hour Vital Signs Date Time Temp Pulse Resp B/P Pulse Ox O2 Delivery O2 Flow Rate FiO2 03/15/17 08:20 75 156/81 03/15/17 08:15 97.6 78 21 154/106 97 Room Air 03/15/17 06:50 97.7 03/15/17 04:00 97.7 65 20 146/81 97 Room Air 03/15/17 00:00 97.2 69 20 138/79 99 Room Air 03/14/17 21:10 105 154/72 03/14/17 20:00 98.1 105 21 154/72 93 Room Air 03/14/17 18:10 74 137/96 03/14/17 16:00 97.3 74 20 137/96 96 Room Air 03/14/17 12:11 98.1 84 19 157/108 98 Room Air 03/14/17 11:49 78 157/102 03/14/17 08:39 96.6 78 19 179/106 99 Room Air Intake and Output 03/14/17 03/15/17 19:00 07:00 Intake Total 960 ml Balance 960 ml Intake Oral 960 ml # Voids 2 6 Laboratory Tests 03/15/17 04:50: White Blood Count 5.1, Red Blood Count 2.90L, Hemoglobin 11.3L, Hematocrit 32.4L , Mean Corpuscular Volume 112H, Mean Corpuscular Hemoglobin 38.9H, Mean Corpuscular Hemoglobin Concent 34.9, Red Cell Distribution Width 13.5, Platelet Count 274, Mean Platelet Volume 5.4L, Neutrophils (%) (Auto) , Lymphocytes (%) ( Auto) , Monocytes (%) (Auto) , Eosinophils (%) (Auto) , Basophils (%) (Auto) , Neutrophils % (Manual) [Pending], Lymphocytes % (Manual) [Pending], Platelet Estimate [Pending], Platelet Morphology [Pending], Sodium Level 139, Potassium Level 4.1, Chloride Level 100, Carbon Dioxide Level 29, Anion Gap 10, Blood Urea Nitrogen 11, Creatinine 0.7, Estimat Glomerular Filtration Rate > 60, Glucose Level 91, Calcium Level 9.6, Phosphorus Level 4.1, Magnesium Level 1.5L , Iron Level 37, Total Iron Binding Capacity 383, Percent Iron Saturation 10L, Unsaturated Iron Binding 346, Ferritin 96, Total Bilirubin 0.3, Aspartate Amino Transf (AST/SGOT) 21, Alanine Aminotransferase (ALT/SGPT) 11, Alkaline Phosphatase 93, C-Reactive Protein, Quantitative 0.5, Total Protein 6.7, Albumin 4.1, Globulin 2.6, Albumin/Globulin Ratio 1.5, Lipase 75H, Vitamin B12 Level 453, Folate [Pending], Thyroid Stimulating Hormone (TSH) 1.200 Height (Feet): 5 Height (Inches): 2.00 Weight (Pounds): 131 General Appearance: no apparent distress, alert EENT: PERRL/EOMI, normal ENT inspection Neck: normal alignment, supple Cardiovascular: normal rate, regular rhythm Abdomen: tender Extremities: non-tender Edema: no edema noted Arm (L), no edema noted Arm (R), no edema noted Leg (L), no edema noted Leg (R), no edema noted Pedal (L), no edema noted Pedal (R), no edema noted Generalized Neurologic: alert, oriented x 3 Skin: warm/dry KENNY BOWER PMirian Mar 15, 2017 08:31
[2017-03-15] MEDS ORDERED: NS 550ML IV ONE (09:45)
[2017-03-15 09:52] LABS: BAND NEUTROPHILS % (MANUAL) 0 % (0-8); BASOPHILS % (MANUAL) 2 % (0-2); EOSINOPHILS % (MANUAL) 2 % (0-3); LYMPHOCYTES % (MANUAL) 42 % (20-45); NEUTROPHILS % (MANUAL) 50 % (45-75); PLATELET ESTIMATE ADEQUATE; PLATELET MORPHOLOGY NORMAL; TOTAL CELLS COUNTED 100
[2017-03-15 09:53] LABS: ANISOCYTOSIS 1+; MACROCYTES OCCASIONAL
--- NOTE | 2017-03-15 11:22 | General Progress Note ---
Assessment/Plan Status: stable Assessment/Plan - EtOH abuse - epigastric pain, presumed EtOH gastritis - Macrocytosis - Anemia - HTN Plan: Mag IV ?? Decrease pain meds- DC home ?? adjust BP meds Subjective ROS Limited/Unobtainable: No Constitutional: Reports: malaise Allergies: Coded Allergies: No Known Allergies (Unverified , 12/04/15) Objective Last 24 Hour Vital Signs Date Time Temp Pulse Resp B/P Pulse Ox O2 Delivery O2 Flow Rate FiO2 03/15/17 08:20 75 156/81 03/15/17 08:15 97.6 78 21 154/106 97 Room Air 03/15/17 06:50 97.7 03/15/17 04:00 97.7 65 20 146/81 97 Room Air 03/15/17 00:00 97.2 69 20 138/79 99 Room Air 03/14/17 21:10 105 154/72 03/14/17 20:00 98.1 105 21 154/72 93 Room Air 03/14/17 18:10 74 137/96 03/14/17 16:00 97.3 74 20 137/96 96 Room Air 03/14/17 12:11 98.1 84 19 157/108 98 Room Air 03/14/17 11:49 78 157/102 Intake and Output 03/14/17 03/15/17 19:00 07:00 Intake Total 960 ml Balance 960 ml Intake Oral 960 ml # Voids 2 6 Laboratory Tests 03/15/17 04:50: White Blood Count 5.1, Red Blood Count 2.90L, Hemoglobin 11.3L, Hematocrit 32.4L , Mean Corpuscular Volume 112H, Mean Corpuscular Hemoglobin 38.9H, Mean Corpuscular Hemoglobin Concent 34.9, Red Cell Distribution Width 13.5, Platelet Count 274, Mean Platelet Volume 5.4L, Neutrophils (%) (Auto) , Lymphocytes (%) ( Auto) , Monocytes (%) (Auto) , Eosinophils (%) (Auto) , Basophils (%) (Auto) , Differential Total Cells Counted 100, Neutrophils % (Manual) 50, Lymphocytes % ( Manual) 42, Monocytes % (Manual) 4, Eosinophils % (Manual) 2, Basophils % ( Manual) 2, Band Neutrophils 0, Platelet Estimate Adequate, Platelet Morphology Normal, Anisocytosis 1+, Macrocytosis Occasional, Sodium Level 139, Potassium Level 4.1, Chloride Level 100, Carbon Dioxide Level 29, Anion Gap 10, Blood Urea Nitrogen 11, Creatinine 0.7, Estimat Glomerular Filtration Rate > 60, Glucose Level 91, Calcium Level 9.6, Phosphorus Level 4.1, Magnesium Level 1.5L , Iron Level 37, Total Iron Binding Capacity 383, Percent Iron Saturation 10L, Unsaturated Iron Binding 346, Ferritin 96, Total Bilirubin 0.3, Aspartate Amino Transf (AST/SGOT) 21, Alanine Aminotransferase (ALT/SGPT) 11, Alkaline Phosphatase 93, C-Reactive Protein, Quantitative 0.5, Total Protein 6.7, Albumin 4.1, Globulin 2.6, Albumin/Globulin Ratio 1.5, Lipase 75H, Vitamin B12 Level 453, Folate [Pending], Thyroid Stimulating Hormone (TSH) 1.200 Height (Feet): 5 Height (Inches): 2.00 Weight (Pounds): 131 General Appearance: no apparent distress Objective no change in PE MEL PAINTING Mar 15, 2017 11:22
[2017-03-15 12:15] VITALS: BP 151/102
[2017-03-15] MEDS ORDERED: PROZAC20 MG ORAL (15:19)
--- NOTE | 2017-03-15 15:19 | Infectious Diseases Prog Note ---
Assessment/Plan Problems: (1) UTI (urinary tract infection) Assessment & Plan: with negative urine culture , off ceftriaxon, monitor clinically (2) AA (alcohol abuse) Assessment & Plan: recommend counseling and rehabilitation (3) Abdominal pain Assessment & Plan: improved, suspect due to chronic pancreatitis , S/P EGD which showed gastritis , CT abdomen showed calcification at the pancreatic head , GI is following (4) Nausea & vomiting Assessment & Plan: resolved, continue supportive care , and nausea medicine (5) HTN (hypertension) Assessment & Plan: poorly controlled, adjust meds to keep systolic less than 140 Subjective Constitutional: Reports: no symptoms HEENT: Reports: no symptoms Respiratory: Reports: no symptoms Breasts: Reports: no symptoms Cardiovascular: Reports: no symptoms Gastrointestinal/Abdominal: Reports: no symptoms Genitourinary: Reports: no symptoms Neurologic: Reports: no symptoms Psychiatric: Reports: no symptoms Skin: Reports: no symptoms Endocrine: Reports: no symptoms Hematologic: Reports: no symptoms Allergies: Coded Allergies: No Known Allergies (Unverified , 12/04/15) Objective Vital Signs Last 24 Hour Vital Signs Date Time Temp Pulse Resp B/P Pulse Ox O2 Delivery O2 Flow Rate FiO2 03/15/17 12:15 97.3 82 21 151/102 99 Room Air 03/15/17 08:20 75 156/81 03/15/17 08:15 97.6 78 21 154/106 97 Room Air 03/15/17 06:50 97.7 03/15/17 04:00 97.7 65 20 146/81 97 Room Air 03/15/17 00:00 97.2 69 20 138/79 99 Room Air 03/14/17 21:10 105 154/72 03/14/17 20:00 98.1 105 21 154/72 93 Room Air 03/14/17 18:10 74 137/96 03/14/17 16:00 97.3 74 20 137/96 96 Room Air Height (Feet): 5 Height (Inches): 2.00 Weight (Pounds): 131 General Appearance: WD/WN, no acute distress HEENT: normocephalic, atraumatic, anicteric, mucous membranes moist Respiratory/Chest: chest wall non-tender, lungs clear, normal breath sounds, no respiratory distress, no accessory muscle use Cardiovascular: normal peripheral pulses, normal rate, regular rhythm, no gallop/murmur, no JVD Abdomen: normal bowel sounds, soft, non tender, no organomegaly, non distended , no mass, no scars Extremities: no cyanosis, no clubbing Skin: no rash, no lesions Laboratory Tests Test 03/15/17 04:50 White Blood Count 5.1 K/UL (4.8-10.8) Red Blood Count 2.90 M/UL (4.20-5.40) L Hemoglobin 11.3 G/DL (12.0-16.0) L Hematocrit 32.4 % (37.0-47.0) L Mean Corpuscular Volume 112 FL (80-99) H Mean Corpuscular Hemoglobin 38.9 PG (27.0-31.0) H Mean Corpuscular Hemoglobin Concent 34.9 G/DL (32.0-36.0) Red Cell Distribution Width 13.5 % (11.6-14.8) Platelet Count 274 K/UL (150-450) Mean Platelet Volume 5.4 FL (6.5-10.1) L Neutrophils (%) (Auto) % (45.0-75.0) Lymphocytes (%) (Auto) % (20.0-45.0) Monocytes (%) (Auto) % (1.0-10.0) Eosinophils (%) (Auto) % (0.0-3.0) Basophils (%) (Auto) % (0.0-2.0) Differential Total Cells Counted 100 Neutrophils % (Manual) 50 % (45-75) Lymphocytes % (Manual) 42 % (20-45) Monocytes % (Manual) 4 % (1-10) Eosinophils % (Manual) 2 % (0-3) Basophils % (Manual) 2 % (0-2) Band Neutrophils 0 % (0-8) Platelet Estimate Adequate Platelet Morphology Normal Anisocytosis 1+ Macrocytosis Occasional Sodium Level 139 mEQ/L (135-145) Potassium Level 4.1 mEQ/L (3.4-4.9) Chloride Level 100 mEQ/L (98-107) Carbon Dioxide Level 29 mEQ/L (20-30) Anion Gap 10 (5-15) Blood Urea Nitrogen 11 mg/dL (7-23) Creatinine 0.7 mg/dL (0.5-0.9) Estimat Glomerular Filtration Rate > 60 mL/min (>60) Glucose Level 91 mg/dL (74-106) Calcium Level 9.6 mg/dL (8.6-10.2) Phosphorus Level 4.1 mg/dL (2.5-4.8) Magnesium Level 1.5 mg/dL (1.7-2.5) L Iron Level 37 ug/dL (37-145) Total Iron Binding Capacity 383 ug/dL (250-400) Percent Iron Saturation 10 % (15-50) L Unsaturated Iron Binding 346 ug/dL (112-346) Ferritin 96 ng/mL (13-150) Total Bilirubin 0.3 mg/dL (0.0-1.2) Aspartate Amino Transf (AST/SGOT) 21 U/L (5-40) Alanine Aminotransferase (ALT/SGPT) 11 U/L (3-33) Alkaline Phosphatase 93 U/L (35-104) C-Reactive Protein, Quantitative 0.5 mg/dL (< 0.5) Total Protein 6.7 g/dL (6.6-8.7) Albumin 4.1 g/dL (3.5-5.2) Globulin 2.6 g/dL Albumin/Globulin Ratio 1.5 (1.0-2.7) Lipase 75 U/L (< 60) H Vitamin B12 Level 453 pg/mL (211-946) Folate Pending Thyroid Stimulating Hormone (TSH) 1.200 uIU/mL (0.300-4.500) Current Medications Medications (Trade) Dose Ordered Sig/Henrry Route PRN Reason Start Time Stop Time Status Last Admin Dose Admin Acetaminophen (Tylenol) 650 mg Q4H PRN ORAL PAIN/TEMP >100.4 03/10/17 08:00 04/09/17 07:59 03/13/17 08:04 Amlodipine Besylate (Norvasc) 5 mg BID ORAL 03/14/17 18:00 04/13/17 17:59 03/15/17 08:20 Clonidine HCl (Catapres) 0.1 mg Q4H PRN ORAL for SBP >160 03/12/17 16:00 04/11/17 15:59 03/14/17 08:23 Diazepam (Valium) 10 mg Q4H PRN ORAL anxiety/alcohol withdrawal 03/10/17 19:30 03/17/17 19:29 Fluoxetine HCl (PROzac) 20 mg DAILY ORAL 03/11/17 09:00 04/10/17 08:59 03/15/17 08:20 Gabapentin (Neurontin) 300 mg THREE TIMES A DAY ORAL 03/14/17 13:00 04/13/17 12:59 03/15/17 14:20 Hydromorphone HCl (Dilaudid) 0.5 mg Q15M PRN IVP Severe Pain (Pain Scale 7-10) 03/12/17 07:00 Hydromorphone HCl (Dilaudid) 1 mg Q4H PRN IVP For Pain 4-10 03/10/17 15:30 03/17/17 15:29 03/15/17 14:21 Methocarbamol (Robaxin) 500 mg Q8H PRN ORAL Muscle Spasm 03/14/17 12:00 04/13/17 11:59 03/15/17 08:20 Metoprolol Tartrate (Lopressor) 50 mg Q12HR ORAL 03/15/17 21:00 04/14/17 20:59 Mirtazapine (Remeron) 7.5 mg BEDTIME ORAL 03/10/17 21:00 04/09/17 20:59 03/14/17 21:10 Ondansetron HCl (Zofran) 4 mg Q6HR PRN IVP Nausea & Vomiting 03/10/17 08:30 04/09/17 08:29 Pantoprazole (Protonix) 40 mg ACBREAKFAST ORAL 03/10/17 09:00 04/09/17 08:59 03/15/17 05:43 Thiamine HCl (Vitamin B1) 100 mg DAILY ORAL 03/11/17 15:30 04/10/17 15:29 03/15/17 08:20 Markos Davis M.D. Mar 15, 2017 15:19
[2017-03-15] MEDS ORDERED: METOPROLOL TART50 M1 ORAL (15:20)
[2017-03-15] MEDS ORDERED: AMLODIPINE BESYL5 MG ORAL (15:20)
[2017-03-15] MEDS ORDERED: NORCO 5-325 TA1 EAC1 ORAL (15:21)
[2017-03-15] MEDS ORDERED: ROBAXIN500 MG PO (15:21)
[2017-03-15 15:52] VITALS: BP 150/102
[2017-03-15 17:54] VITALS: BP 150/102
--- NOTE | 2017-03-15 20:04 | General Progress Note ---
Assessment/Plan Status: stable, progressing Assessment/Plan cont current meds Subjective Neurologic/Psychiatric: Reports: anxiety, depressed, emotional problems Allergies: Coded Allergies: No Known Allergies (Unverified , 12/04/15) Subjective doing better Objective Last 24 Hour Vital Signs Date Time Temp Pulse Resp B/P Pulse Ox O2 Delivery O2 Flow Rate FiO2 03/15/17 17:54 92 150/102 03/15/17 17:54 92 150/102 03/15/17 15:52 98.4 92 20 150/102 99 Room Air 03/15/17 12:15 97.3 82 21 151/102 99 Room Air 03/15/17 08:20 75 156/81 03/15/17 08:15 97.6 78 21 154/106 97 Room Air 03/15/17 06:50 97.7 03/15/17 04:00 97.7 65 20 146/81 97 Room Air 03/15/17 00:00 97.2 69 20 138/79 99 Room Air 03/14/17 21:10 105 154/72 Intake and Output 03/14/17 03/15/17 19:00 07:00 Intake Total 960 ml Balance 960 ml Intake Oral 960 ml # Voids 2 6 Laboratory Tests 03/15/17 04:50: White Blood Count 5.1, Red Blood Count 2.90L, Hemoglobin 11.3L, Hematocrit 32.4L , Mean Corpuscular Volume 112H, Mean Corpuscular Hemoglobin 38.9H, Mean Corpuscular Hemoglobin Concent 34.9, Red Cell Distribution Width 13.5, Platelet Count 274, Mean Platelet Volume 5.4L, Neutrophils (%) (Auto) , Lymphocytes (%) ( Auto) , Monocytes (%) (Auto) , Eosinophils (%) (Auto) , Basophils (%) (Auto) , Differential Total Cells Counted 100, Neutrophils % (Manual) 50, Lymphocytes % ( Manual) 42, Monocytes % (Manual) 4, Eosinophils % (Manual) 2, Basophils % ( Manual) 2, Band Neutrophils 0, Platelet Estimate Adequate, Platelet Morphology Normal, Anisocytosis 1+, Macrocytosis Occasional, Sodium Level 139, Potassium Level 4.1, Chloride Level 100, Carbon Dioxide Level 29, Anion Gap 10, Blood Urea Nitrogen 11, Creatinine 0.7, Estimat Glomerular Filtration Rate > 60, Glucose Level 91, Calcium Level 9.6, Phosphorus Level 4.1, Magnesium Level 1.5L , Iron Level 37, Total Iron Binding Capacity 383, Percent Iron Saturation 10L, Unsaturated Iron Binding 346, Ferritin 96, Total Bilirubin 0.3, Aspartate Amino Transf (AST/SGOT) 21, Alanine Aminotransferase (ALT/SGPT) 11, Alkaline Phosphatase 93, C-Reactive Protein, Quantitative 0.5, Total Protein 6.7, Albumin 4.1, Globulin 2.6, Albumin/Globulin Ratio 1.5, Lipase 75H, Vitamin B12 Level 453, Folate [Pending], Thyroid Stimulating Hormone (TSH) 1.200 Height (Feet): 5 Height (Inches): 2.00 Weight (Pounds): 131 General Appearance: no apparent distress, alert Neurologic: alert, oriented x 3, responsive, depressed affect Kamryn Hernandez M.D. Mar 15, 2017 20:04
--- NOTE | 2017-03-15 20:51 | General Progress Note ---
Assessment/Plan Assessment/Plan 1. Anemia, microcytic, secondary to alcohol abuse. --> H/H better today 2. Alcohol abuse history. Continue to monitor. 3. Gastritis --> s/p egd which was neg 4. Epigastric pain, secondary to gastritis 5. Microcytosis. Continue to monitor. Does not require bone marrow biopsy. 6. Azotemia. Subjective Constitutional: Reports: no symptoms HEENT: Reports: no symptoms Cardiovascular: Reports: no symptoms Respiratory: Reports: no symptoms Gastrointestinal/Abdominal: Reports: abdominal pain Genitourinary: Reports: no symptoms Neurologic/Psychiatric: Reports: anxiety Endocrine: Reports: no symptoms Hematologic/Lymphatic: Reports: anemia Allergies: Coded Allergies: No Known Allergies (Unverified , 12/04/15) Objective Last 24 Hour Vital Signs Date Time Temp Pulse Resp B/P Pulse Ox O2 Delivery O2 Flow Rate FiO2 03/15/17 17:54 92 150/102 03/15/17 17:54 92 150/102 03/15/17 15:52 98.4 92 20 150/102 99 Room Air 03/15/17 12:15 97.3 82 21 151/102 99 Room Air 03/15/17 08:20 75 156/81 03/15/17 08:15 97.6 78 21 154/106 97 Room Air 03/15/17 06:50 97.7 03/15/17 04:00 97.7 65 20 146/81 97 Room Air 03/15/17 00:00 97.2 69 20 138/79 99 Room Air 03/14/17 21:10 105 154/72 Intake and Output 03/14/17 03/15/17 19:00 07:00 Intake Total 960 ml Balance 960 ml Intake Oral 960 ml # Voids 2 6 Laboratory Tests 03/15/17 04:50: White Blood Count 5.1, Red Blood Count 2.90L, Hemoglobin 11.3L, Hematocrit 32.4L , Mean Corpuscular Volume 112H, Mean Corpuscular Hemoglobin 38.9H, Mean Corpuscular Hemoglobin Concent 34.9, Red Cell Distribution Width 13.5, Platelet Count 274, Mean Platelet Volume 5.4L, Neutrophils (%) (Auto) , Lymphocytes (%) ( Auto) , Monocytes (%) (Auto) , Eosinophils (%) (Auto) , Basophils (%) (Auto) , Differential Total Cells Counted 100, Neutrophils % (Manual) 50, Lymphocytes % ( Manual) 42, Monocytes % (Manual) 4, Eosinophils % (Manual) 2, Basophils % ( Manual) 2, Band Neutrophils 0, Platelet Estimate Adequate, Platelet Morphology Normal, Anisocytosis 1+, Macrocytosis Occasional, Sodium Level 139, Potassium Level 4.1, Chloride Level 100, Carbon Dioxide Level 29, Anion Gap 10, Blood Urea Nitrogen 11, Creatinine 0.7, Estimat Glomerular Filtration Rate > 60, Glucose Level 91, Calcium Level 9.6, Phosphorus Level 4.1, Magnesium Level 1.5L , Iron Level 37, Total Iron Binding Capacity 383, Percent Iron Saturation 10L, Unsaturated Iron Binding 346, Ferritin 96, Total Bilirubin 0.3, Aspartate Amino Transf (AST/SGOT) 21, Alanine Aminotransferase (ALT/SGPT) 11, Alkaline Phosphatase 93, C-Reactive Protein, Quantitative 0.5, Total Protein 6.7, Albumin 4.1, Globulin 2.6, Albumin/Globulin Ratio 1.5, Lipase 75H, Vitamin B12 Level 453, Folate [Pending], Thyroid Stimulating Hormone (TSH) 1.200 Height (Feet): 5 Height (Inches): 2.00 Weight (Pounds): 131 General Appearance: alert EENT: TMs normal Neck: supple Cardiovascular: normal peripheral pulses Edema: no edema noted Pedal (L), no edema noted Pedal (R) Neurologic: immunopathologist II-XII grossly normal Skin: warm/dry Armand Oseguera Mar 15, 2017 20:51
[2017-03-15] MEDS ORDERED: Metoprolol 25mg tab ORAL SCH (21:00)
--- NOTE | 2017-03-15 22:10 | General Progress Note ---
Assessment/Plan Assessment/Plan Assessment - EtOH abuse - epigastric pain, presumed EtOH gastritis - negative EGD - negative CT - negative labs - Macrocytosis Recommendations - push po - OK to d/c from GI standpoint - outpt f/u Subjective Allergies: Coded Allergies: No Known Allergies (Unverified , 12/04/15) Subjective Feel same tolerating PO some abd pain Objective Last 24 Hour Vital Signs Date Time Temp Pulse Resp B/P Pulse Ox O2 Delivery O2 Flow Rate FiO2 03/15/17 17:54 92 150/102 03/15/17 17:54 92 150/102 03/15/17 15:52 98.4 92 20 150/102 99 Room Air 03/15/17 12:15 97.3 82 21 151/102 99 Room Air 03/15/17 08:20 75 156/81 03/15/17 08:15 97.6 78 21 154/106 97 Room Air 03/15/17 06:50 97.7 03/15/17 04:00 97.7 65 20 146/81 97 Room Air 03/15/17 00:00 97.2 69 20 138/79 99 Room Air Intake and Output 03/14/17 03/15/17 19:00 07:00 Intake Total 960 ml Balance 960 ml Intake Oral 960 ml # Voids 2 6 Laboratory Tests 03/15/17 04:50: White Blood Count 5.1, Red Blood Count 2.90L, Hemoglobin 11.3L, Hematocrit 32.4L , Mean Corpuscular Volume 112H, Mean Corpuscular Hemoglobin 38.9H, Mean Corpuscular Hemoglobin Concent 34.9, Red Cell Distribution Width 13.5, Platelet Count 274, Mean Platelet Volume 5.4L, Neutrophils (%) (Auto) , Lymphocytes (%) ( Auto) , Monocytes (%) (Auto) , Eosinophils (%) (Auto) , Basophils (%) (Auto) , Differential Total Cells Counted 100, Neutrophils % (Manual) 50, Lymphocytes % ( Manual) 42, Monocytes % (Manual) 4, Eosinophils % (Manual) 2, Basophils % ( Manual) 2, Band Neutrophils 0, Platelet Estimate Adequate, Platelet Morphology Normal, Anisocytosis 1+, Macrocytosis Occasional, Sodium Level 139, Potassium Level 4.1, Chloride Level 100, Carbon Dioxide Level 29, Anion Gap 10, Blood Urea Nitrogen 11, Creatinine 0.7, Estimat Glomerular Filtration Rate > 60, Glucose Level 91, Calcium Level 9.6, Phosphorus Level 4.1, Magnesium Level 1.5L , Iron Level 37, Total Iron Binding Capacity 383, Percent Iron Saturation 10L, Unsaturated Iron Binding 346, Ferritin 96, Total Bilirubin 0.3, Aspartate Amino Transf (AST/SGOT) 21, Alanine Aminotransferase (ALT/SGPT) 11, Alkaline Phosphatase 93, C-Reactive Protein, Quantitative 0.5, Total Protein 6.7, Albumin 4.1, Globulin 2.6, Albumin/Globulin Ratio 1.5, Lipase 75H, Vitamin B12 Level 453, Folate [Pending], Thyroid Stimulating Hormone (TSH) 1.200 Height (Feet): 5 Height (Inches): 2.00 Weight (Pounds): 131 Objective WDWn NCAT supple CTA RRR Soft ND, Less TTP epigastric no edema non focal CLIFF HALL Mar 15, 2017 22:10
[2017-03-16] MEDS ORDERED: VITAMIN B-1100 MG ORAL (11:13)
--- NOTE | 2017-03-16 11:13 | Discharge Summary ---
Discharge Summary Hospital Course Date of Admission Mar 10, 2017 at 05:48 Date of Discharge Mar 15, 2017 at 18:30 Admitting Diagnosis abdominal pain/bronchospasm PHILLIP Carter is a 41 year old female who was admitted on Mar 10, 2017 at 05:48 for Abdominal Pain/Bronchospasm Hospital Course dc summary #[id number] Discharge Medications New Medications: Thiamine Hcl* (Vitamin B-1*) 100 Mg Tablet 100 MG ORAL DAILY, #30 TAB 0 Refills Continued Medications: Amlodipine Besylate* (Amlodipine Besylate*) 5 Mg Tablet 5 MG ORAL BID, TAB Methocarbamol* (Robaxin*) 500 Mg Tablet 500 MG PO EVERY 8 HOURS, #21 TAB 0 Refills Metoprolol Tartrate* (Metoprolol Tartrate*) 50 Mg Tablet 50 MG ORAL EVERY 12 HOURS, TAB Omeprazole (Omeprazole) 20 Mg Capsule.dr 20 MG ORAL DAILY, #30 CAP Discharge Condition Upon Discharge: stable Discharge Disposition Patient was discharged to Home (01) Discharge Diagnoses: Discharge Instructions Discharge Instructions Special Instructions I have been assigned to complete a D/C Summary on this account. I was not involved in the patient management Damaris Mendoza NP ([place]) Mar 16, 2017 11:13
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
== END 2017-03-15 18:30 | disposition home or self-care (01) | DRG 241 ==
LOC: EDBD 21:04 → EMR 21:19 → 4W 03-10 05:48 → OBSVTOIN 03-10 05:48 → EDBEDREQ 03-10 07:46
PROC: 0DB78ZX Excision of Stomach, Pylorus, Via Natural or Artificial Opening Endoscopic, Diagnostic (ICD-10-PCS; principal; 2017-03-12 07:05)
DX: K29.20 Alcoholic gastritis without bleeding (principal); I10 Essential (primary) hypertension; K86.0 Alcohol-induced chronic pancreatitis; F10.229 Alcohol dependence with intoxication, unspecified; D50.9 Iron deficiency anemia, unspecified; F19.21 Other psychoactive substance dependence, in remission; F10.239 Alcohol dependence with withdrawal, unspecified; J98.01 Acute bronchospasm; F41.9 Anxiety disorder, unspecified; F32.9 Major depressive disorder, single episode, unspecified; G60.8 Other hereditary and idiopathic neuropathies; K21.9 Gastro-esophageal reflux disease without esophagitis; F17.200 Nicotine dependence, unspecified, uncomplicated
CPT/HCPCS: 36415; 74000; 74177; 80053; 80329; 81003; 82607; 82728; 82746; 83540; 83550; 83690; 83735; 84100; 84443; 84702; 85007; 85025; 85610; 85730; 86140; 87081; 87086; 94003; 94150; 94640; 94664; J2405

== ENCOUNTER 2017-05-09 19:30 | Emergency (ER) | payer OTHER ==
[~2017-05-09] VITALS: Ht 157.5 cm; Wt 54.4 kg
[~2017-05-09 19:30] MED LIST changes: +AMLODIPINE BESYL5 MG ORAL; +METOPROLOL TART50 M1 ORAL; +NORCO 5-325 TA1 EAC1 ORAL; +PROZAC20 MG ORAL; +ROBAXIN500 MG PO; +VITAMIN B-1100 MG ORAL
[2017-05-09] MEDS ORDERED: AMOXICILLIN500 MG (19:37)
[2017-05-09 19:42] VITALS: BP 122/78
[2017-05-09] MEDS ORDERED: traMADol 50mg tab ORAL ONE (20:00)
[2017-05-09] MEDS ORDERED: TRAMADOL HCL50 MG ORAL (20:50)
[2017-05-09] MEDS ORDERED: IBUPROFEN600 MG ORAL (20:50)
[2017-05-09 21:15] VITALS: BP 122/78
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
== END 2017-05-09 21:15 | disposition home or self-care (01) ==
LOC: EDBD 19:30 → EMR 20:02
DX: K08.89 Other specified disorders of teeth and supporting structures (principal); I10 Essential (primary) hypertension
CPT/HCPCS: 99284

== ENCOUNTER 2017-12-09 11:22 | Emergency (ER) | payer OTHER ==
[~2017-12-09] VITALS: Ht 170.2 cm; Wt 68.0 kg
[~2017-12-09 11:22] MED LIST changes: +AMOXICILLIN500 MG; +IBUPROFEN600 MG ORAL; +TRAMADOL HCL50 MG ORAL
[2017-12-09] MEDS ORDERED: NKM (11:25)
[2017-12-09 11:31] VITALS: BP 100/67
[2017-12-09] MEDS ORDERED: Lidocaine 2% Visc 15ml soln ORAL ONE (11:45)
--- NOTE | 2017-12-09 11:54 | Emergency Room Report ---
History of Present Illness General Chief Complaint: Abdominal Pain Source: Patient Present Illness HPI This patient states that she developed upper abdominal pain starting this morning. She has also had nausea and vomiting. She states that she has a history of pancreatitis. She states of the pancreatitis secondary to alcohol abuse however, she states that she did stop drinking alcohol one year ago. She denies fever or chills. She denies chest pain or shortness of breath. She denies dysuria or hematuria. She states that the pain in her upper abdomen does radiate to her right back. She has no other complaints. Allergies: Coded Allergies: No Known Allergies (Unverified , 12/04/15) Patient History Past Medical History: see triage record, GERD, other - Gerd, Gastritis, pancreatitis Social History: Denies: smoking, alcohol use, drug use Last Menstrual Period: ON MENSES NOW Now: No Reviewed Nursing Documentation: PMH: Agreed; PSxH: Agreed Nursing Documentation-PMH Hx Cardiac Problems: No - PANCREATITIS Hx Hypertension: Yes Hx Cancer: No Hx Gastrointestinal Problems: Yes - Adb pain Hx Neurological Problems: No Review of Systems All Other Systems: negative except mentioned in HPI Physical Exam Vital Signs Date Time Temp Pulse Resp B/P (MAP) Pulse Ox O2 Delivery O2 Flow Rate FiO2 12/09/17 11:18 98.8 88 16 100/67 98 Room Air 98.8 Sp02 EP Interpretation: reviewed, normal General Appearance: no apparent distress, alert, GCS 15, non-toxic Head: normocephalic, atraumatic Eyes: bilateral eye normal inspection, bilateral eye PERRL ENT: hearing grossly normal, normal pharynx, no angioedema, normal voice Neck: full range of motion, supple/symm/no masses Respiratory: chest non-tender, lungs clear, normal breath sounds, speaking full sentences Cardiovascular #1: regular rate, rhythm, no edema Gastrointestinal: normal bowel sounds, soft, non-distended, no guarding, no rebound, tenderness - TTP in epigastrium, RUQ. Rectal: deferred Genitourinary: CVA tenderness (R) Musculoskeletal: back normal, gait/station normal, normal range of motion, non- tender Neurologic: alert, oriented x3, responsive, motor strength/tone normal, sensory intact, speech normal Psychiatric: judgement/insight normal, memory normal, mood/affect normal, no suicidal/homicidal ideation Skin: normal color, no rash, warm/dry, well hydrated Medical Decision Making Diagnostic Impression: Primary Impression: Pancreatitis Additional Impressions: Alcohol abuse Gastritis ER Course Patient presents a pancreatitis. She also has a blood alcohol over 300. This is despite the fact that the patient stated that she had stopped drinking alcohol year ago. Clearly this is not true. Patient has nausea vomiting and unable tolerate fluids. The patient is admitted for acute pancreatitis. Laboratory Tests Test 12/09/17 11:35 White Blood Count 6.5 K/UL (4.8-10.8) Red Blood Count 3.06 M/UL (4.20-5.40) L Hemoglobin 11.2 G/DL (12.0-16.0) L Hematocrit 33.9 % (37.0-47.0) L Mean Corpuscular Volume 111 FL (80-99) H Mean Corpuscular Hemoglobin 36.6 PG (27.0-31.0) H Mean Corpuscular Hemoglobin Concent 33.0 G/DL (32.0-36.0) Red Cell Distribution Width 14.2 % (11.6-14.8) Platelet Count 115 K/UL (150-450) L Mean Platelet Volume 5.7 FL (6.5-10.1) L Neutrophils (%) (Auto) % (45.0-75.0) Lymphocytes (%) (Auto) % (20.0-45.0) Monocytes (%) (Auto) % (1.0-10.0) Eosinophils (%) (Auto) % (0.0-3.0) Basophils (%) (Auto) % (0.0-2.0) Differential Total Cells Counted 100 Neutrophils % (Manual) 73 % (45-75) Lymphocytes % (Manual) 21 % (20-45) Monocytes % (Manual) 4 % (1-10) Eosinophils % (Manual) 2 % (0-3) Basophils % (Manual) 0 % (0-2) Band Neutrophils 0 % (0-8) Platelet Estimate Decreased L Platelet Morphology Normal Macrocytosis 1+ Urine Color Pale yellow Urine Appearance Clear Urine pH 6.5 (4.5-8.0) Urine Specific [place] 1.005 (1.005-1.035) Urine Protein 1+ (NEGATIVE) H Urine Glucose (UA) Negative (NEGATIVE) Urine Ketones Negative (NEGATIVE) Urine Occult Blood 5+ (NEGATIVE) H Urine Nitrite Negative (NEGATIVE) Urine Bilirubin Negative (NEGATIVE) Urine Urobilinogen Normal MG/DL (0.0-1.0) Urine Leukocyte Esterase 3+ (NEGATIVE) H Urine RBC 2-4 /HPF (0 - 2) H Urine WBC 10-15 /HPF (0 - 2) H Urine Squamous Epithelial Cells Few /LPF (NONE/OCC) Urine Bacteria Few /HPF (NONE) Urine HCG, Qualitative Negative (NEGATIVE) Sodium Level 146 MMOL/L (136-145) H Potassium Level 3.5 MMOL/L (3.5-5.1) Chloride Level 107 MMOL/L (98-107) Carbon Dioxide Level 23 MMOL/L (21-32) Anion Gap 16 mmol/L (5-15) H Blood Urea Nitrogen 13 mg/dL (7-18) Creatinine 0.8 MG/DL (0.55-1.30) Estimate Glomerular Filtration Rate > 60 mL/min (>60) Glucose Level 105 MG/DL (74-106) Calcium Level 9.7 MG/DL (8.5-10.1) Total Bilirubin 0.2 MG/DL (0.2-1.0) Aspartate Amino Transferase (AST) 39 U/L (15-37) H Alanine Aminotransferase (ALT) 25 U/L (12-78) Alkaline Phosphatase 125 U/L (46-116) H Total Protein 8.4 G/DL (6.4-8.2) H Albumin 4.3 G/DL (3.4-5.0) Globulin 4.1 g/dL Albumin/Globulin Ratio 1.0 (1.0-2.7) Lipase 1206 U/L (73-393) H Urine Opiates Screen Negative (NEGATIVE) Urine Barbiturates Screen Negative (NEGATIVE) Phencyclidine (PCP) Screen Negative (NEGATIVE) Urine Amphetamines Screen Negative (NEGATIVE) Urine Benzodiazepines Screen Negative (NEGATIVE) Urine Cocaine Screen Negative (NEGATIVE) Urine Marijuana (THC) Screen Negative (NEGATIVE) Serum Alcohol 329 mg/dL EKG Diagnostic Results Rate: normal Rhythm: NSR ST Segments: no acute changes Other Impression prolonged QT Rhythm Strip Diag. Results EP Interpretation: yes Rate: 90's Rhythm: NSR, no PVC's, no ectopy CT/MRI/US Diagnostic Results CT/MRI/US Diagnostic Results : Imaging Test Ordered: RUQ US Impression No acute findings. See official report. Last Vital Signs Date Time Temp Pulse Resp B/P (MAP) Pulse Ox O2 Delivery O2 Flow Rate FiO2 12/09/17 11:31 98.8 16 100/67 98 Room Air 98.8 12/09/17 11:18 88 Disposition: ADMITTED INPATIENT Condition: Stable SONIA MITCHELL D.O. December 09, 2017 11:54
[2017-12-09 11:59] LABS: APPEARANCE,URINE CLEAR; BILIRUBIN, URINE NEGATIVE (NEGATIVE); COLOR,URINE PALE YELLOW; GLUCOSE, URINE (UA) NEGATIVE (NEGATIVE); KETONES,URINE NEGATIVE (NEGATIVE); LEUKOCYTE ESTERASE ,URINE 3+ (NEGATIVE); NITRITE,URINE NEGATIVE (NEGATIVE); PH,URINE 6.5 (4.5-8.0); PROTEIN,URINE 1+ (NEGATIVE); UROBILINOGEN,URINE NORMAL MG/DL (0.0-1.0)
[2017-12-09 12:01] LABS: HEMATOCRIT 33.9 % (37.0-47.0); HEMOGLOBIN 11.2 G/DL (12.0-16.0); MEAN CORPUSCULAR VOLUME 111 FL (80-99); PLATELET COUNT 115 K/UL (150-450); RED BLOOD COUNT 3.06 M/UL (4.20-5.40); RED CELL DISTRIBUTION WIDTH 14.2 % (11.6-14.8); WHITE BLOOD COUNT 6.5 K/UL (4.8-10.8)
[2017-12-09 12:21] LABS: ANION GAP 16 mmol/L (5-15); BLOOD UREA NITROGEN 13 mg/dL (7-18); CALCIUM 9.7 MG/DL (8.5-10.1); CARBON DIOXIDE 23 MMOL/L (21-32); CHLORIDE 107 MMOL/L (98-107); CREATININE 0.8 MG/DL (0.55-1.30); POTASSIUM 3.5 MMOL/L (3.5-5.1); SODIUM 146 MMOL/L (136-145)
[2017-12-09 12:26] LABS: ALANINE AMINOTRANSFERASE 25 U/L (12-78); ALBUMIN 4.3 G/DL (3.4-5.0); ALKALINE PHOSPHATASE 125 U/L (46-116); ASPARTATE AMINO TRANSFERASE 39 U/L (15-37); BILIRUBIN,TOTAL 0.2 MG/DL (0.2-1.0)
[2017-12-09] MEDS ORDERED: Ketorolac 30mg Inj IV ONE (12:30)
[2017-12-09] MEDS ORDERED: Morphine Sulfate 4mg/ml Inj IVP ONE (13:15)
[2017-12-09 14:07] VITALS: BP 107/70
[2017-12-09] MEDS ORDERED: Promethazine HCl 12.5 MG in NS 55 ML IV PRN (15:15)
[2017-12-09] MEDS ORDERED: LORazepam Inj 2mg/ml 1ml IV PRN (15:15)
[2017-12-09] MEDS ORDERED: Mylanta II UD 30ml ORAL PRN (15:15)
[2017-12-09] MEDS ORDERED: Promethazine HCl 25 MG in NS 55 ML IV PRN (15:15)
[2017-12-09] MEDS ORDERED: Metoclopramide 10mg/2ml Inj IVP PRN (15:15)
--- NOTE | 2017-12-09 15:35 | Diagnostic Imaging Report ---
Indication:Abdominal pain Technique: Grayscale and duplex Doppler imaging of the abdomen performed. Comparison: None Findings: Liver is echogenic consistent with fatty infiltration. Slightly heterogeneous echogenic focus noted within the left lobe of the liver nonspecific. This was initially noted last year with a described 1.8 x 3.3 cm globular mass with enhancement. Spleen is normal in size. There is no ascites. CBD is 4.8 mm. No hydronephrosis demonstrated. Suspected nonobstructive stones in the kidneys given some areas of increased echogenicity. Demonstrated part of the pancreas demonstrates are calcifications within the head of the pancreas. The finding was noted on the prior CT last year 03/12/2017. Nature of the calcification is unknown but could be on the basis of a previous pancreatitis. Aorta is mildly calcified. IMPRESSION: Suspected nonobstructive stones within the kidneys. Focal callus patient of the head of the pancreas previously described. This may reflect old pancreatitis Fatty liver. Globular mass within the lateral segment of the left lobe corresponding to CT described mass, possibly vascular malformation. No ascites or gallstones.
[2017-12-09] MEDS ORDERED: Nitroglycerin Subl 0.4mg tab SL PRN (16:00)
[2017-12-09] MEDS ORDERED: D5 1/2NS 1,000 ML IV SCH (16:00)
[2017-12-09 18:30] VITALS: BP 107/70
[2017-12-09] MEDS ORDERED: Heparin 5000 units/ml inj SUBQ SCH (21:00)
[2017-12-09] MEDS ORDERED: Metoprolol Tartrate 50mg tab ORAL SCH (21:00)
[2017-12-09] MEDS ORDERED: Miralax 17gm pkt ORAL PRN (21:00)
[2017-12-09] MEDS ORDERED: Methocarbamol 500mg tab ORAL SCH (22:00)
--- NOTE | 2017-12-09 23:30 | History and Physical Report ---
DATE OF ADMISSION: 12/09/2017 TIME: At 3 p.m. CONSULTANTS: 1. Desean Martinez M.D. 2. Drew Wetzel M.D. CHIEF COMPLAINT: Pancreatitis, nausea, vomiting, and hypertension. BRIEF HISTORY: This is a 42-year-old female, who lives at home, presents with nausea and vomiting for two days, has been drinking a little bit as per patient. The patient came to the ER, diagnosed with pancreatitis, and being admitted to medical floor for further treatment. Currently, slightly anxious, feeling sleepy, not talking much. PAST MEDICAL HISTORY: Hypertension. PAST SURGICAL HISTORY: None. MEDICATIONS: Prozac, Protonix, Robaxin, Lopressor, Norvasc, Tylenol, MiraLAX, Zofran, Zestril, Benadryl, nitroglycerin, and Mylanta. ALLERGIES: Denies. SOCIAL HISTORY: Positive smoking. Positive alcohol. No intravenous drug abuse. FAMILY HISTORY: Noncontributory. REVIEW OF SYSTEMS: No chest pain. Slight short of breath. Slight nausea and vomiting. No diarrhea. PHYSICAL EXAMINATION: GENERAL: Slightly anxious in bed, oriented x3, and slight distress secondary to nausea. VITAL SIGNS: Temperature is 98, pulse 88, respirations 16, and blood pressure 107/70. CARDIOVASCULAR: No murmurs. LUNGS: Poor air exchange. ABDOMEN: Bowel sounds distant. EXTREMITIES: No cyanosis, clubbing, or edema. NEUROLOGIC: The patient moves all extremities, slightly weak. LABORATORY DATA: Labs at this time show hemoglobin and hematocrit are 11 and 33 and platelets 115,000. Otherwise, BMP is normal. Sodium 146. AST 39 and ALT 25. Lipase 1206. Urinalysis, 3+ leukocyte esterase. Urine tox is negative. Serum alcohol 329. ASSESSMENT: 1. Pancreatitis. 2. Nausea and vomiting status post drinking. 3. Anemia. 4. Alcohol intoxication. 5. Hypertension. 6. Shortness of breath. 7. Urinary tract infection. PLAN: 1. Continue premeds. 2. NPO, IV fluids. 3. Zofran p.r.n. 4. Pain control. 5. Resume home blood pressure medications. 6. CBC and BMP in the morning. 7. Dr. Martinez, Dr. Bolaños, and Dr. Wetzel to consult. 8. We will continue to follow this patient. Ramiro Pulido D.O. DR: KELTON JOB#: [id number] CC:
[2017-12-10] MEDS ORDERED: Pantoprazole Inj IV SCH (09:00)
== END 2017-12-09 18:30 | disposition other institution (70) ==
LOC: EDBD 11:22 → EMR 11:58
DX: K85.90 Acute pancreatitis without necrosis or infection, unspecified (principal); K29.70 Gastritis, unspecified, without bleeding; F10.10 Alcohol abuse, uncomplicated; I10 Essential (primary) hypertension
CPT/HCPCS: 36415; 76700; 80053; 80307; 80329; 81003; 81025; 83690; 85007; 85025; 87086; 87181; 93005; 99285; J1885; J2270; J2405; S0028